=== PATIENT | male | born 1965 | race Caucasian/White ===

== ENCOUNTER 2024-08-07 21:41 | Emergency (ER) | payer SELFPAY ==
[2024-08-07 21:51] VITALS: RESP 18
--- NOTE | 2024-08-07 23:11 | ED ---
Seizure HPI - General Chief Complaint: Seizure Stated Complaint: Seizure Time Seen by Provider: 08/07/24 21:50 Source: EMS Mode of arrival: EMS - History of Present Illness Initial Comments: 58-year-old male who presents emergency department after he had a seizure. Patient is currently staying at a [facility]. He has a history of seizure disorder. He has been unable to obtain his Keppra and therefore having breakthrough seizures. States he did not take his medication this morning. Patient does admit to having a refill for the prescription however does not get his disability check until the morning. No reported injuries from the seizure. Patient states that he does not already evaluated as he was just seen yesterday for breakthrough seizure - Related Data Allergies Allergy/AdvReac Type Severity Reaction Status Date / Time No Known Allergies Allergy Verified 08/07/24 21:51 Review of Systems ROS Statement: Those systems with pertinent positive or pertinent negative responses have been documented in the HPI. ROS Other: All systems not noted in ROS Statement are negative. General Exam General appearance: alert, in no apparent distress Head exam: Present: atraumatic, normocephalic, normal inspection Eye exam: Present: normal appearance, PERRL, EOMI. Absent: scleral icterus, conjunctival injection, periorbital swelling ENT exam: Present: normal exam, mucous membranes moist Neck exam: Present: normal inspection. Absent: tenderness, meningismus, lymphadenopathy Respiratory exam: Present: normal lung sounds bilaterally. Absent: respiratory distress, wheezes, rales, rhonchi, stridor Cardiovascular Exam: Present: regular rate, normal rhythm, normal heart sounds. Absent: systolic murmur, diastolic murmur, rubs, gallop, clicks GI/Abdominal exam: Present: soft, normal bowel sounds. Absent: distended, tenderness, guarding, rebound, rigid Extremities exam: Present: normal inspection, full ROM, normal capillary refill. Absent: tenderness, pedal edema, joint swelling, calf tenderness Back exam: Present: normal inspection Neurological exam: Present: alert, oriented X3, CN II-XII intact Psychiatric exam: Present: normal affect, normal mood Skin exam: Present: warm, dry, intact, normal color. Absent: rash Course Vital Signs 08/07/24 08/07/24 21:47 23:28 Temperature 98.2 F 98.3 F Pulse Rate 80 76 Respiratory 18 18 Rate Blood Pressure 138/72 126/71 O2 Sat by Pulse 98 99 Oximetry Medical Decision Making - Medical Decision Making Was pt. sent in by a medical professional or institution (MARQUISE Mobley, FISH FARMER, urgent care, hospital, or longterm...) When possible be specific @ -No Did you speak to anyone other than the patient for history (EMS, parent, family, police, friend...)? What history was obtained from this source @ -Spoke with EMS who brought the patient in Did you review nursing and triage notes (agree or disagree)? Why? @ -I reviewed and agree with nursing and triage notes Were old charts reviewed (outside hosp., previous admission, EMS record, old EKG, old radiological studies, urgent care reports/EKG's, longterm records)? Report findings @ -No Differential Diagnosis (chest pain, altered mental status, abdominal pain women, abdominal pain men, vaginal bleeding, weakness, fever, dyspnea, syncope, headache, dizziness, GI bleed, back pain, seizure, CVA, palpatations, mental health, musculoskeletal)? @ -Differential Seizure: Recurrent seizure disorder, febrile seizure, alcohol withdrawal, stimulants, meningitis, encephalitis, intercranial hemorrhage, intracranial tumor, stroke, eclampsia, thyrotoxicosis, hypocalcemia, hyponatremia, hypernatremia, hypomagnesemia, psychogenic, this is not meant to be an all-inclusive list. EKG interpreted by me (3pts min.). @ -Not done X-rays interpreted by me (1pt min.). @ -None done CT interpreted by me (1pt min.). @ -None done U/S interpreted by me (1pt. min.). @ -None done What testing was considered but not performed or refused? (CT, X-rays, U/S, labs)? Why? @ -Laboratory studies were considered however patient refused as he does have a history of seizure disorder and is out of his seizure medications What meds were considered but not given or refused? Why? @ -None Did you discuss the management of the patient with other professionals (professionals i.e. MARQUISE Mobley, FISH FARMER, lab, RT, psych nurse, social service worker, concrete mixer, teacher, mobile patrol officer, outpatient case manager)? Give summary @ -No Was smoking cessation discussed for >3mins.? @ -No Was critical care preformed (if so, how long)? @ -No Were there social determinants of health that impacted care today? How? (Homelessness, low income, unemployed, alcoholism, drug addiction, transportation, low edu. Level, literacy, decrease access to med. care, skilled nursing, rehab)? @ -Patient is currently in a [facility]p Was there de-escalation of care discussed even if they declined (Discuss DNR or withdrawal of care, Hospice)? DNR status @ -No What co-morbidities impacted this encounter? (DM, HTN, Smoking, COPD, CAD, Cancer, CVA, ARF, Chemo, Hep., AIDS, mental health diagnosis, sleep apnea, morbid obesity)? @ -Seizure disorder Was patient admitted / discharged? Hospital course, mention meds given and route, prescriptions, significant lab abnormalities, going to OR and other pertinent info. @ -Upon arrival patient seen and evaluated in bed 8. Thorough history and physical exam was performed. I did recommend laboratory studies however patient refused. States he is having seizures because he is out of his seizure medications. He does have a prescription for them however has not filled it due to lack of funds. Patient was given his dose of Keppra tonight. Additionally given another dose for the morning. At this time he will be discharged home. Patient states he will obtain his medications as he is getting his disability today. Patient discharged in stable condition Undiagnosed new problem with uncertain prognosis? @ -No Drug Therapy requiring intensive monitoring for toxicity (Heparin, Nitro, Insulin, Cardizem)? @ -No Were any procedures done? @ -No Diagnosis/symptom? @ -Acute breakthrough seizure, medical noncompliance Acute, or Chronic, or Acute on Chronic? @ -Acute on chronic Uncomplicated (without systemic symptoms) or Complicated (systemic symptoms)? @ -Complicated Side effects of treatment? @ -No Exacerbation, Progression, or Severe Exacerbation? @ -No Poses a threat to life or bodily function? How? (Chest pain, [place], [place], pneumonia, PE, COPD, DKA, ARF, appy, cholecystitis, CVA, Diverticulitis, Homicidal, Suicidal, threat to staff... and all critical care pts) @ -No Disposition Clinical Impression: Breakthrough seizure Disposition: HOME SELF-CARE Condition: Stable Instructions (If sedation given, give patient instructions): Seizure/Epilepsy Discharge Instructions & Follow-Up Additional Instructions: Please take your medications as they are instructed. Follow-up with your doctor and return for any new or worsening symptoms Is patient prescribed a controlled substance at d/c from ED?: No Referrals: None,Stated [Primary Care Provider] - 1-2 days Time of Disposition: 23:11
[2024-08-07] MEDS: levETIRAcetam 500 MG TAB PO STA (23:24)
[2024-08-07 23:40] VITALS: BP 126/71; PULSE 76; TEMP 98.3
== END 2024-08-07 23:39 | disposition home or self-care (01) ==
LOC: EC 21:41
CPT/HCPCS: 99284

== ENCOUNTER 2024-12-18 11:25 | Emergency (ER) | payer MEDICARE ==
[2024-12-18 11:36] VITALS: RESP 16; TEMP 97.8
--- NOTE | 2024-12-18 13:34 | ED ---
Back Pain HPI - General Chief Complaint: Back Pain/Injury Stated Complaint: repeated falls, back pain Time Seen by Provider: 12/18/24 11:43 Source: patient, RN notes reviewed Mode of arrival: ambulatory Limitations: no limitations - History of Present Illness Initial Comments: This is a 59-year-old male presenting for lower back pain following fall on ice yesterday. Patient states he fell backward landing on his gluteus. Endorses associated left leg numbness. States he is still able to ambulate. Denies striking his head, loss of consciousness, headache, neck pain, vision changes, nausea/vomiting, dizziness. Denies other significant injury. MD Complaint: back pain, back injury, fall Onset/Timin -: days(s) Similar Symptoms Previously: No Place: street Radiation: left leg Severity scale (1-10): 6 Quality: sharp Consistency: constant Improves With: immobilization, supine Worsens With: movement, sitting upright, walking Associated Symptoms: numbness - Related Data Previous Rx's Medication Instructions Recorded metFORMIN HCL 1,000 mg PO BID #20 tab 12/13/24 Cyclobenzaprine [Flexeril] 10 mg PO Q8H PRN #15 tab 12/18/24 Ibuprofen [Motrin] 800 mg PO Q8H PRN #30 tab 12/18/24 predniSONE 50 mg PO DAILY #5 tab 12/18/24 Nirmatrelvir/Ritonavir [Paxlovid 1 each PO BID 5 Days #10 each 12/20/24 300-100 mg Dose Pack] Allergies Allergy/AdvReac Type Severity Reaction Status Date / Time No Known Allergies Allergy Verified 12/20/24 16:47 Review of Systems ROS Statement: Those systems with pertinent positive or pertinent negative responses have been documented in the HPI. ROS Other: All systems not noted in ROS Statement are negative. Past Medical History Past Medical History: Diabetes Mellitus, Hypertension History of Any Multi-Drug Resistant Organisms: None Reported Past Surgical History: No Surgical Hx Reported Past Psychological History: No Psychological Hx Reported Smoking Status: Current every day smoker Past Alcohol Use History: None Reported Past Drug Use History: None Reported General Exam Limitations: no limitations General appearance: alert, in no apparent distress Head exam: Present: atraumatic, normocephalic, normal inspection Eye exam: Present: normal appearance, PERRL, EOMI. Absent: scleral icterus, conjunctival injection, periorbital swelling ENT exam: Present: normal exam, mucous membranes moist Neck exam: Present: normal inspection. Absent: tenderness, meningismus, lymphadenopathy Respiratory exam: Present: normal lung sounds bilaterally. Absent: respiratory distress, wheezes, rales, rhonchi, stridor Cardiovascular Exam: Present: regular rate, normal rhythm, normal heart sounds. Absent: systolic murmur, diastolic murmur, rubs, gallop, clicks GI/Abdominal exam: Present: soft, normal bowel sounds. Absent: distended, tenderness, guarding, rebound, rigid Extremities exam: Present: full ROM, tenderness (Positive LLE tenderness without paresthesia), normal capillary refill, other (Bilateral posterior tibialis pulse +2). Absent: pedal edema, joint swelling, calf tenderness Back exam: Present: paraspinal tenderness (Positive bilateral paralumbar/sacral tenderness), vertebral tenderness (Positive lumbosacral tenderness without obvious crepitus or step-off) Neurological exam: Present: alert, oriented X3, CN II-XII intact Psychiatric exam: Present: normal affect, normal mood Skin exam: Present: warm, dry, intact, normal color. Absent: rash Course Vital Signs 12/18/24 12/18/24 11:34 15:27 Temperature 97.8 F Pulse Rate 65 63 Respiratory 16 16 Rate Blood Pressure 121/76 123/66 O2 Sat by Pulse 98 100 Oximetry Medical Decision Making - Medical Decision Making Was pt. sent in by a medical professional or institution (, PA, ASSISTANT CASINO SHIFT MANAGER, urgent care, hospital, or fpc...) When possible be specific @ -No Did you speak to anyone other than the patient for history (EMS, parent, family, police, friend...)? What history was obtained from this source @ -No Did you review nursing and triage notes (agree or disagree)? Why? @ -I reviewed and agree with nursing and triage notes Were old charts reviewed (outside hosp., previous admission, EMS record, old EKG, old radiological studies, urgent care reports/EKG's, fpc records)? Report findings @ -No old charts were reviewed Differential Diagnosis (chest pain, altered mental status, abdominal pain women, abdominal pain men, vaginal bleeding, weakness, fever, dyspnea, syncope, headache, dizziness, GI bleed, back pain, seizure, CVA, palpatations, mental health, musculoskeletal)? @ -Differential Back Pain: Strain, zoster, cauda equina syndrome, epidural abscess, vertebral osteomyelitis, discitis, fracture, subluxation, disc herniation, DJD, spinal stenosis, dissection, AAA, pancreatitis, peptic ulcer disease, pyelonephritis, kidney stone, this is not meant to be an all-inclusive list. EKG interpreted by me (3pts min.). @ -Not done X-rays interpreted by me (1pt min.). @ -Lumbosacral x-ray shows mild degenerative changes at L1-2, L5-S1 and mild disc space narrowing at L5-S1. No obvious fracture or dislocation. CT interpreted by me (1pt min.). @ -None done U/S interpreted by me (1pt. min.). @ -None done What testing was considered but not performed or refused? (CT, X-rays, U/S, labs)? Why? @ -None What meds were considered but not given or refused? Why? @ -None Did you discuss the management of the patient with other professionals (professionals i.e. , PA, ASSISTANT CASINO SHIFT MANAGER, lab, RT, psych nurse, social organization professor, leasing property manager, teacher, military police officer, bilingual patient support caseworker)? Give summary @ -No Was smoking cessation discussed for >3mins.? @ -No Was critical care preformed (if so, how long)? @ -No Were there social determinants of health that impacted care today? How? (Homelessness, low income, unemployed, alcoholism, drug addiction, transportation, low edu. Level, literacy, decrease access to med. care, residential, rehab)? @ -No Was there de-escalation of care discussed even if they declined (Discuss DNR or withdrawal of care, Hospice)? DNR status @ -No What co-morbidities impacted this encounter? (DM, HTN, Smoking, COPD, CAD, Cancer, CVA, ARF, Chemo, Hep., AIDS, mental health diagnosis, sleep apnea, morbid obesity)? @ -None Was patient admitted / discharged? Hospital course, mention meds given and route, prescriptions, significant lab abnormalities, going to OR and other pertinent info. @ -Lumbosacral x-ray shows mild degenerative changes at L1-2, L5-S1 and mild disc space narrowing at L5-S1. No obvious fracture or dislocation. Patient provided IM Toradol, Solu-Medrol and Norflex along with lidocaine patch with significant relief noted by patient. Motrin 800, Flexeril and prednisone sent to patient's pharmacy. Advised follow-up with PCP/orthospine for ongoing management of pain. Discussed patient with Dr. Alicea. Undiagnosed new problem with uncertain prognosis? @ -No Drug Therapy requiring intensive monitoring for toxicity (Heparin, Nitro, Insulin, Cardizem)? @ -No Were any procedures done? @ -No Diagnosis/symptom? @ -Lumbar back strain with radiculopathy Acute, or Chronic, or Acute on Chronic? @ -Acute Uncomplicated (without systemic symptoms) or Complicated (systemic symptoms)? @ -Uncomplicated Side effects of treatment? @ -No Exacerbation, Progression, or Severe Exacerbation? @ -No Poses a threat to life or bodily function? How? (Chest pain, [place], [place], pneumonia, PE, COPD, DKA, ARF, appy, cholecystitis, CVA, Diverticulitis, Homicidal, Suicidal, threat to staff... and all critical care pts) @ -No Disposition Clinical Impression: Strain of lumbar region, Sciatica Disposition: HOME SELF-CARE Condition: Good Instructions (If sedation given, give patient instructions): Acute Low Back Pain (ED) Prescriptions: Cyclobenzaprine [Flexeril] 10 mg PO Q8H PRN #15 tab PRN Reason: Spasms Ibuprofen [Motrin] 800 mg PO Q8H PRN #30 tab PRN Reason: Pain predniSONE 50 mg PO DAILY #5 tab Is patient prescribed a controlled substance at d/c from ED?: No Referrals: None,Stated [Primary Care Provider] - 1-2 days Gilmar Loving DO [Doctor of Osteopathic Medicine] - 1-2 days Time of Disposition: 15:14
[2024-12-18] MEDS: KETOROLAC 15 MG/ML 1 ML VIAL IM STA (13:41)
[2024-12-18] MEDS: methylPREDNISolone SOD SUCCI 125 MG/2 ML VIAL IM ONE (13:41)
[2024-12-18] MEDS: ORPHENADRINE 30 MG/ML 2 ML VIAL IM STA (13:42)
[2024-12-18] MEDS: LIDOCAINE 4% PATCH TOPICAL ONE (13:42)
--- NOTE | 2024-12-18 14:21 | XR ---
EXAMINATION TYPE: XR lumbosacral spine min 4V DATE OF EXAM: 12/18/2024 1:58 PM COMPARISON: None. CLINICAL INDICATION: Male, 59 years old with history of Fall with lower back pain, sciatica, pain TECHNIQUE: 5 view(s) obtained. FINDINGS: There are 6 lumbar-type vertebral bodies. The T12 level appears to be transitional and may have rudim entary 12th ribs. Facet degenerative changes present L5-S1 and L1-2. Mild posterior disc space narrow ing is present L5-S1 remaining disc heights are preserved. Vertebral body heights are preserved. IMPRESSION: 1. Mild degenerative changes discussed above. 2. No acute osseous abnormality radiographically apparent [facility], , 12/18/2024 2:19 PM
[2024-12-18 15:28] VITALS: BP 123/66; PULSE 63
== END 2024-12-18 15:28 | disposition home or self-care (01) ==
LOC: EC 11:25
DX: S39.012A Strain of muscle, fascia and tendon of lower back, initial encounter (principal); F17.200 Nicotine dependence, unspecified, uncomplicated; X50.0XXA Overexertion from strenuous movement or load, initial encounter
CPT/HCPCS: 72110; 99283; 96372 ×3; J2360; J1885; J2919

== ENCOUNTER 2024-12-20 16:09 | Emergency (ER) | payer MEDICARE ==
[2024-12-20] MEDS: SODIUM CHLORIDE 0.9% 1,000 ML IV STA (17:16)
[2024-12-20] MEDS: ASPIRIN 81 MG PO STA (17:17)
--- NOTE | 2024-12-20 17:17 | ED ---
General Adult HPI - General Chief complaint: Chest Pain Stated complaint: chest pain Time Seen by Provider: 12/20/24 16:23 Source: patient Mode of arrival: ambulatory Limitations: no limitations - History of Present Illness Initial comments: Patient is a 59-year-old gentleman, past medical history diabetes presenting today for not being able to taste since this morning and right sided chest pain. Patient states woke up feeling like he could not taste anything. Then this afternoon was sitting in the library and started having "poking" right sided in termittent chest pain. States he has been dealing with this "for a long time". Took his usual pain medications this morning however none since the onset of his chest pain. When asked about difficulty breathing he states he feels like he has difficulty getting air through his throat but denies throat pain. Denies cough, fevers, rashes, new numbness or tingling or weakness, abdominal pain, nausea, vomiting, diaphoresis. - Related Data Previous Rx's Medication Instructions Recorded metFORMIN HCL 1,000 mg PO BID #20 tab 12/13/24 Cyclobenzaprine [Flexeril] 10 mg PO Q8H PRN #15 tab 12/18/24 Ibuprofen [Motrin] 800 mg PO Q8H PRN #30 tab 12/18/24 predniSONE 50 mg PO DAILY #5 tab 12/18/24 Nirmatrelvir/Ritonavir [Paxlovid 1 each PO BID 5 Days #10 each 12/20/24 300-100 mg Dose Pack] Allergies Allergy/AdvReac Type Severity Reaction Status Date / Time No Known Allergies Allergy Verified 12/20/24 16:47 Review of Systems ROS Statement: Those systems with pertinent positive or pertinent negative responses have been documented in the HPI. ROS Other: All systems not noted in ROS Statement are negative. Past Medical History Past Medical History: Diabetes Mellitus, Hypertension History of Any Multi-Drug Resistant Organisms: None Reported Past Surgical History: No Surgical Hx Reported Past Psychological History: No Psychological Hx Reported Smoking Status: Current every day smoker Past Alcohol Use History: None Reported Past Drug Use History: None Reported General Exam - General Exam Comments Initial Comments: PE: CONSTITUTIONAL: No apparent distress, well appearing SKIN: Warm, dry, no jaundice, hives or petechiae EYES: Pupils are equally round, extraocular movements intact without nystagmus, clear conjunctiva, non-icteric sclera HENT: Normocephalic, atraumatic, moist mucus membranes, oropharynx clear without exudates, posterior oropharynx is not erythematous, there is no uvular swelling or oropharyngeal edema, no tonsillar exudates NECK: , Full range of motion, normal appearance PULMONARY: Clear to auscultation without wheezes, rhonchi, or rales, normal ex cursion, no accessory muscle use and no stridor CARDIOVASCULAR: Reproducible chest wall point tenderness with palpation of the right chest, regular rate, rhythm, normal S1 and S2. No appreciated murmurs, rubs or gallops. Strong radial pulses with intact distal perfusion. No lower extremity edema GASTROINTESTINAL: Soft, active bowel sounds throughout, non-tender, non- distended, no palpable masses, no rebound or guarding. No hepatosplenomegaly MUSCULOSKELETAL: Extremities have no gross deformity, no edema, redness, or swelling. No calf swelling NEUROLOGIC:_a/o x 3, GCS 15, normal mentation and speech. Moves all extremities x 4 without motor or sensory deficit, no focal neurologic deficits PSYCHIATRIC:_normal mood and affect, thought process is clear and linear Limitations: no limitations Course Vital Signs 12/20/24 12/20/24 12/20/24 16:15 18:06 19:56 Temperature 97.2 F L 98.2 F 98.1 F Pulse Rate 91 67 70 Respiratory 19 16 18 Rate Blood Pressure 144/99 143/90 123/81 O2 Sat by Pulse 98 98 98 Oximetry EKG Findings - EKG Comments: EKG Findings:: Sinus rhythm, rate 70 bpm OR interval 137 ms QT/QTc 402/425 ms, normal axis, artifact present, otherwise no ST elevations or depression, no STEMI Medical Decision Making - Medical Decision Making Was pt. sent in by a medical professional or institution (, PA, RESIDENTIAL CARE OFFICER, urgent care, hospital, or fpc...) When possible be specific @ -No Did you speak to anyone other than the patient for history (EMS, parent, family, police, friend...)? What history was obtained from this source @ -No Did you review nursing and triage notes (agree or disagree)? Why? @ -I reviewed nursing and triage notes Were old charts reviewed (outside hosp., previous admission, EMS record, old EKG, old radiological studies, urgent care reports/EKG's, fpc records)? Report findings @ -Medical records reviewed-patient was here on 12/18/2024 for generalized back pain x-ray at that time showed no acute process, patient here 12/13/24 for d iabetic problems Differential Diagnosis (chest pain, altered mental status, abdominal pain women, abdominal pain men, vaginal bleeding, weakness, fever, dyspnea, syncope, headache, dizziness, GI bleed, back pain, seizure, CVA, palpatations, mental health, musculoskeletal)? In regards to decreased taste and chest pain, differential diagnosis remains broad however top considerations include COVID 19 or other viral etiology, uncontrolled DM, nutritional deficiency, electrolyte abnormality, ACS, pericarditis, pleuritis, chostocondritis, MSK, esophageal spasm, GERD, this is not an all inclusive list EKG interpreted by me (3pts min.). @ -As above X-rays interpreted by me (1pt min.). I personally reviewed CXR, I see no cardiomegaly, consolidations or pneumothorax, I agree with radiologist interpretation CT interpreted by me (1pt min.). @ -None done U/S interpreted by me (1pt. min.). @ -None done What testing was considered but not performed or refused? (CT, X-rays, U/S, labs)? Why? @ -None What meds were considered but not given or refused? Why? @ -None Did you discuss the management of the patient with other professionals (professionals i.e. , PA, RESIDENTIAL CARE OFFICER, lab, RT, psych nurse, elementary school social worker, home office claim specialist, teacher, parking control officer, pillowcase turner)? Give summary @ -No Was smoking cessation discussed for >3mins.? @ -No Was critical care preformed (if so, how long)? @ -No Were there social determinants of health that impacted care today? How? (Homelessness, low income, unemployed, alcoholism, drug addiction, transportation, low edu. Level, literacy, decrease access to med. care, skilled nursing, rehab)? @Homelessness Was there de-escalation of care discussed even if they declined (Discuss DNR or withdrawal of care, Hospice)? @ -No What co-morbidities impacted this encounter? (DM, HTN, Smoking, COPD, CAD, Cancer, CVA, ARF, Chemo, Hep., AIDS, mental health diagnosis, sleep apnea, morbid obesity)? CAD Was patient admitted / discharged? Hospital course, mention meds given and route, prescriptions, significant lab abnormalities, going to OR and other pertinent info. @Discharged- Pt 59-year-old gentleman history of homelessness, CAD, DM, presenting today for various complaints. Notes being unable to taste since this morning,right sided CP that has been an an ongoing issue for the pt. Vitals w/in acceptable limits on arrival. Exam significant for reproducible chest wall TTP. Respirations are unlabored without wheezes rhonchi or stridor. Discussed with patient plan for chest x-ray, cardiac labs, Cepheid testing. Will give aspirin, Tylenol for chest pain. Chest pain is reproducible and states patient states "has been going on for a long time".'s will obtain single troponin. Patient is COVID-positive which would explain his difficulty with taste. Chest x-ray is pending. Glucose is in the 400s though no anion gap. Will recheck after insulin, fluids. On reassessment pt states pain has resolved. HEART score 2-3. Updated him to findings today and offered paxlovid therapy for COVID19, to which p was agreeable. On recheck glucose down to 257. Discussed hyperglycemia and the i mportance of following up with his PCP regarding today's visit. Pt verbalzed understanding and was discharged in improved condition. In my medical judgment there is currently no evidence of an immediate life- threatening or surgical condition. Discharge is therefore indicated at this time. Discharge treatment instructions, follow up instructions, and appropriate emergency department return precautions were discussed with the patient and/or medical decision maker. Patient and/or medical decision maker expressed understanding of and agreed with the treatment plan, follow up instructions, and emergency department return precaution. All patient's and/or medical decision maker's questions were answered. Undiagnosed new problem with uncertain prognosis? @ -No Drug Therapy requiring intensive monitoring for toxicity (Heparin, Nitro, Insulin, Cardizem)? @ -No Were any procedures done? @ -No Diagnosis/symptom? @ -COVID-19, hyperglycemia Acute, or Chronic, or Acute on Chronic? @Acute Uncomplicated (without systemic symptoms) or Complicated (systemic symptoms)? @ -Uncomplicated Side effects of treatment? @ -No Exacerbation, Progression, or Severe Exacerbation? @ -No - Lab Data Result diagrams: 12/20/24 17:16 12/20/24 17:16 Lab Results 12/20/24 12/20/24 12/20/24 Range/Units 16:42 17:16 17:16 WBC 5.9 (3.8-10.6) k/uL RBC 4.95 (4.30-5.90) m/uL Hgb 15.9 (13.0-17.5) gm/dL Hct 49.2 (39.0-53.0) % MCV 99.3 (80.0-100.0) fL MCH 32.0 (25.0-35.0) pg MCHC 32.3 (31.0-37.0) g/dL RDW 12.4 (11.5-15.5) % Plt Count 205 (150-450) k/uL MPV 8.8 Neutrophils % 74 % Lymphocytes % 19 % Monocytes % 6 % Eosinophils % 0 % Basophils % 0 % Neutrophils # 4.3 (1.3-7.7) k/uL Lymphocytes # 1.1 (1.0-4.8) k/uL Monocytes # 0.4 (0-1.0) k/uL Eosinophils # 0.0 (0-0.7) k/uL Basophils # 0.0 (0-0.2) k/uL PT 10.5 (10.0-12.5) sec INR 0.9 (<1.2) APTT 21.8 L (22.0-30.0) sec Sodium (137-145) mmol/L Potassium (3.5-5.1) mmol/L Chloride (98-107) mmol/L Carbon Dioxide (22-30) mmol/L Anion Gap mmol/L BUN (9-20) mg/dL Creatinine (0.66-1.25) mg/dL Est GFR (CKD-EPI)AfAm (>60 ml/min/1.73 sqM) Est GFR (CKD-EPI)NonAf (>60 ml/min/1.73 sqM) Glucose (74-99) mg/dL POC Glucose (mg/dL) (70-110) mg/dL POC Glu Relocation Manager ID Calcium (8.4-10.2) mg/dL Magnesium (1.6-2.3) mg/dL Total Bilirubin (0.2-1.3) mg/dL AST (17-59) U/L ALT (4-49) U/L Alkaline Phosphatase (38-126) U/L Troponin I (0.000-0.034) ng/mL Total Protein (6.3-8.2) g/dL Albumin (3.5-5.0) g/dL Influenza Type A (PCR) Not Detected (Not Detectd) Influenza Type B (PCR) Not Detected (Not Detectd) RSV (PCR) Not Detected (Not Detectd) SARS-CoV-2 (PCR) Detected A (Not Detectd) 12/20/24 12/20/24 12/20/24 Range/Units 17:16 17:16 19:26 WBC (3.8-10.6) k/uL RBC (4.30-5.90) m/uL Hgb (13.0-17.5) gm/dL Hct (39.0-53.0) % MCV (80.0-100.0) fL MCH (25.0-35.0) pg MCHC (31.0-37.0) g/dL RDW (11.5-15.5) % Plt Count (150-450) k/uL MPV Neutrophils % % Lymphocytes % % Monocytes % % Eosinophils % % Basophils % % Neutrophils # (1.3-7.7) k/uL Lymphocytes # (1.0-4.8) k/uL Monocytes # (0-1.0) k/uL Eosinophils # (0-0.7) k/uL Basophils # (0-0.2) k/uL PT (10.0-12.5) sec INR (<1.2) APTT (22.0-30.0) sec Sodium 132 L (137-145) mmol/L Potassium 4.8 (3.5-5.1) mmol/L Chloride 93 L (98-107) mmol/L Carbon Dioxide 29 (22-30) mmol/L Anion Gap 10 mmol/L BUN 25 H (9-20) mg/dL Creatinine 0.81 (0.66-1.25) mg/dL Est GFR (CKD-EPI)AfAm >90 (>60 ml/min/1.73 sqM) Est GFR (CKD-EPI)NonAf >90 (>60 ml/min/1.73 sqM) Glucose 459 H (74-99) mg/dL POC Glucose (mg/dL) 257 H (70-110) mg/dL POC Glu Relocation Manager ID Srinath Elena Calcium 10.3 H (8.4-10.2) mg/dL Magnesium 2.3 (1.6-2.3) mg/dL Total Bilirubin 0.8 (0.2-1.3) mg/dL AST 27 (17-59) U/L ALT 25 (4-49) U/L Alkaline Phosphatase 72 (38-126) U/L Troponin I <0.012 (0.000-0.034) ng/mL Total Protein 7.1 (6.3-8.2) g/dL Albumin 4.5 (3.5-5.0) g/dL Influenza Type A (PCR) (Not Detectd) Influenza Type B (PCR) (Not Detectd) RSV (PCR) (Not Detectd) SARS-CoV-2 (PCR) (Not Detectd) Disposition Clinical Impression: Hyperglycemia, COVID-19 Disposition: HOME SELF-CARE Condition: Stable Instructions (If sedation given, give patient instructions): Coronavirus Disease 2019 (COVID-19), Chest Pain (ED) Additional Instructions: Every disease is a spectrum and a small chance still exists that a serious condition could develop, for this reason, please monitor yourself closely for new, changing or worsening symptoms, symptoms that persist beyond 48 hours, for more than 4 days, difficulty in breathing, coughing up blood or thick sputum, changes in vision, new numbness or weakness, difficulty in breathing, swelling in your legs, inability to tolerate/keep down fluids or your medications, inability to follow up with outpatient providers as instructed and should you experience these symptoms or should you have any further concerns for your wellbeing please return to the ED or call 911 immediately. Your pain can be treated with acetaminophen. You can take up to 1000 mg of acetaminophen (Tylenol) every 6 hours. Be careful as this is included in some medicines like Nyquil, [place], Percocet, Vicodin, STANBACK, Goody's Powders, and Excedrin. You can also use lidocaine patches for topical pain. You can purchase 4% patches over the counter at most drug stores. These can be helpful for pain from your muscles or bones. Please plenty of fluids and get plenty of rest. PLEASE call your primary care physician as soon as possible to arrange / discuss plan for followup appointment. Appointment in the next 1-3 days is strongly encouraged if possible. PLEASE let us know here before you leave if there is anything further we can do to be of any assistance. Take care and feel Better! Prescriptions: Nirmatrelvir/Ritonavir [Paxlovid 300-100 mg Dose Pack] 1 each PO BID 5 Days #10 each Is patient prescribed a controlled substance at d/c from ED?: No Referrals: None,Stated [Primary Care Provider] - 1-2 days
[2024-12-20] MEDS: ACETAMINOPHEN TAB 325 MG TAB PO STA (17:21)
[2024-12-20 17:25] LABS: Influenza A Not Detected (Not Detectd); Influenza B Not Detected (Not Detectd); RSV Not Detected (Not Detectd)
[2024-12-20 17:31] LABS: Basophils % (A) 0 %; Eosinophils % (A) 0 %; HCT 49.2 % (39.0-53.0); HGB 15.9 gm/dL (13.0-17.5); Lymphocytes # (A) 1.1 k/uL (1.0-4.8); Lymphocytes % (A) 19 %; MCHC 32.3 g/dL (31.0-37.0); MCV 99.3 fL (80.0-100.0); Mean Platelet Volume 8.8; Monocytes # (A) 0.4 k/uL (0-1.0); Monocytes % (A) 6 %; Neutrophils # (A) 4.3 k/uL (1.3-7.7); Neutrophils % (A) 74 %; Platelet Count 205 k/uL (150-450); RBC 4.95 m/uL (4.30-5.90); RDW 12.4 % (11.5-15.5); WBC 5.9 k/uL (3.8-10.6)
[2024-12-20 17:42] LABS: ALT 25 U/L (4-49); AST 27 U/L (17-59); African American GFR (CKD) >90 (>60 ml/min/1.73 sqM); Albumin 4.5 g/dL (3.5-5.0); Alkaline Phosphatase 72 U/L (38-126); Anion Gap 10 mmol/L; Blood Urea Nitrogen 25 mg/dL (9-20); Calcium 10.3 mg/dL (8.4-10.2); Carbon Dioxide 29 mmol/L (22-30); Chloride 93 mmol/L (98-107); Glucose 459 mg/dL (74-99); Magnesium 2.3 mg/dL (1.6-2.3); Non-African American GFR(CKD) >90 (>60 ml/min/1.73 sqM); Potassium 4.8 mmol/L (3.5-5.1); Sodium 132 mmol/L (137-145); Total Bilirubin 0.8 mg/dL (0.2-1.3); Total Protein 7.1 g/dL (6.3-8.2)
[2024-12-20 17:48] LABS: INR 0.9 (<1.2); Prothrombin Time 10.5 sec (10.0-12.5)
[2024-12-20 18:01] LABS: Partial Thromboplastin Time 21.8 sec (22.0-30.0)
[2024-12-20] MEDS: SODIUM CHLORIDE 0.9% 2,000 ML IV ONE (18:12)
[2024-12-20] MEDS: INSULIN REGULAR 100 UNIT/ML VIAL (IV) IV ONE (18:19)
--- NOTE | 2024-12-20 18:59 | XR ---
EXAMINATION TYPE: XR chest 2V DATE OF EXAM: 12/20/2024 6:46 PM COMPARISON: None. CLINICAL INDICATION: Male, 59 years old with history of Chest Pain, TECHNIQUE: Frontal and lateral views of the chest are obtained. FINDINGS: There is no focal air space opacity, pleural effusion, or pneumothorax seen. The cardiac silhouette size is within normal limits. The osseous structures are intact. IMPRESSION: No acute process. [facility], , 12/20/2024 6:56 PM
[2024-12-20 19:28] LABS: Glucose,Whole Blood 257 mg/dL (70-110)
[2024-12-20 19:57] VITALS: BP 123/81; PULSE 70; RESP 18; TEMP 98.1
== END 2024-12-20 19:57 | disposition home or self-care (01) ==
LOC: EC 16:09
DX: U07.1 COVID-19 (principal); E11.65 Type 2 diabetes mellitus with hyperglycemia; F17.200 Nicotine dependence, unspecified, uncomplicated
CPT/HCPCS: 36415; 71046; 80053; 83735; 84484; 85025; 85610; 85730; 87636; 93005; 96360; 96361; 99285

== ENCOUNTER 2025-01-30 19:38 | Inpatient (IN) | payer MEDICARE ==
--- NOTE | 2025-01-30 20:12 | ED ---
Abdominal Pain HPI - General Chief Complaint: Abdominal Pain Stated Complaint: Abd Pain Time Seen by Provider: 01/30/25 19:45 Source: patient, RN notes reviewed Mode of arrival: ambulatory Limitations: no limitations - History of Present Illness Initial Comments: 59-year-old male presents emergency department with chief complaint of abdominal pain. Patient states he has lower abdominal pain pressure. Patient also has dysuria. Patient states that he just feels weak, weight loss. Patient states he is concerned his prostate cancer as he states all of his family have had had prostate cancer. Patient denies any change in bowel habits no chest pain no shortness of breath. - Related Data Previous Rx's Medication Instructions Recorded metFORMIN HCL 1,000 mg PO BID #20 tab 12/13/24 Cyclobenzaprine [Flexeril] 10 mg PO Q8H PRN #15 tab 12/18/24 Ibuprofen [Motrin] 800 mg PO Q8H PRN #30 tab 12/18/24 predniSONE 50 mg PO DAILY #5 tab 12/18/24 Nirmatrelvir/Ritonavir [Paxlovid 1 each PO BID 5 Days #10 each 12/20/24 300-100 mg Dose Pack] Allergies Allergy/AdvReac Type Severity Reaction Status Date / Time No Known Allergies Allergy Verified 12/20/24 16:47 Review of Systems ROS Statement: Those systems with pertinent positive or pertinent negative responses have been documented in the HPI. ROS Other: All systems not noted in ROS Statement are negative. Past Medical History Past Medical History: Dementia, Diabetes Mellitus, Hypertension History of Any Multi-Drug Resistant Organisms: None Reported Past Surgical History: Tonsillectomy Past Psychological History: No Psychological Hx Reported Smoking Status: Current every day smoker Past Alcohol Use History: None Reported Past Drug Use History: None Reported General Exam Limitations: no limitations General appearance: alert, in no apparent distress Head exam: Present: atraumatic, normocephalic, normal inspection Eye exam: Present: normal appearance, PERRL, EOMI. Absent: scleral icterus, conjunctival injection, periorbital swelling ENT exam: Present: normal exam, normal oropharynx, mucous membranes moist Neck exam: Present: normal inspection, full ROM. Absent: tenderness, meningismus, lymphadenopathy Respiratory exam: Present: normal lung sounds bilaterally. Absent: respiratory distress, wheezes, rales, rhonchi, stridor Cardiovascular Exam: Present: regular rate, normal rhythm, normal heart sounds. Absent: systolic murmur, diastolic murmur, rubs, gallop, clicks GI/Abdominal exam: Present: soft, normal bowel sounds. Absent: distended, tenderness, guarding, rebound, rigid Back exam: Absent: CVA tenderness (R), CVA tenderness (L) Neurological exam: Present: alert Skin exam: Present: warm, dry, intact, normal color. Absent: rash Course Vital Signs 01/30/25 01/30/25 01/30/25 19:40 20:21 21:44 Temperature 98.3 F Pulse Rate 95 91 85 Respiratory 16 20 20 Rate Blood Pressure 154/91 137/84 143/84 O2 Sat by Pulse 98 99 Oximetry Medical Decision Making - Medical Decision Making Was pt. sent in by a medical professional or institution (, PA, TUBULAR PRODUCTS FABRICATOR, urgent care, hospital, or group home...) When possible be specific @ -No Did you speak to anyone other than the patient for history (EMS, parent, family, police, friend...)? What history was obtained from this source @ -No Did you review nursing and triage notes (agree or disagree)? Why? @ -I reviewed and agree with nursing and triage notes Were old charts reviewed (outside hosp., previous admission, EMS record, old EKG, old radiological studies, urgent care reports/EKG's, group home records)? Report findings @ -No old charts were reviewed Differential Diagnosis (chest pain, altered mental status, abdominal pain women, abdominal pain men, vaginal bleeding, weakness, fever, dyspnea, syncope, headache, dizziness, GI bleed, back pain, seizure, CVA, palpatations, mental health, musculoskeletal)? @ -Differential Abdominal Pain Men: Appendicitis, cholecystitis, diverticulosis, ischemic bowel, pancreatitis, hepatitis, UTI, gastroenteritis, AAA, incarcerated hernia, bowel obstruction, constipation, inflammatory bowel, hepatitis, peptic ulcer disease, splenic infarction, perforated viscus, testicular torsion, this is not meant to be an all-inclusive list EKG interpreted by me (3pts min.). @ -As above X-rays interpreted by me (1pt min.). @ -None done CT interpreted by me (1pt min.). @ -CT abdomen pelvis showing horseshoe kidney, possible chronic outlet obstruction bladder, enlarged prostate U/S interpreted by me (1pt. min.). @ -None done What testing was considered but not performed or refused? (CT, X-rays, U/S, labs)? Why? @ -None What meds were considered but not given or refused? Why? @ -None Did you discuss the management of the patient with other professionals (professionals i.e. , PA, TUBULAR [employer] FABRICATOR, lab, RT, psych nurse, social media manager, coagulant dipper, teacher, ecological technical officer, case filler)? Give summary @ -EM for admission Was smoking cessation discussed for >3mins.? @ -No Was critical care preformed (if so, how long)? @ -35 minutes Were there social determinants of health that impacted care today? How? (Home lessness, low income, unemployed, alcoholism, drug addiction, transportation, low edu. Level, literacy, decrease access to med. care, senior living, rehab)? @ -No Was there de-escalation of care discussed even if they declined (Discuss DNR or withdrawal of care, Hospice)? DNR status @ -No What co-morbidities impacted this encounter? (DM, HTN, Smoking, COPD, CAD, Cancer, CVA, ARF, Chemo, Hep., AIDS, mental health diagnosis, sleep apnea, morbid obesity)? @ -None Was patient admitted / discharged? Hospital course, mention meds given and route, prescriptions, significant lab abnormalities, going to OR and other pertinent info. @ -Admitted patient was found to have new onset diabetes, hyperglycemia with h yperkalemia. Patient was given fluid bolus patient does have hyponatremia but with corrected sodium normal sodium. Patient started maintenance fluids, insulin will be transition to sliding scale. Undiagnosed new problem with uncertain prognosis? @ -No Drug Therapy requiring intensive monitoring for toxicity (Heparin, Nitro, Insulin, Cardizem)? @ -No Were any procedures done? @ -No Diagnosis/symptom? @ -New onset diabetes, hyperglycemia, hyperkalemia Acute, or Chronic, or Acute on Chronic? @ -Acute Uncomplicated (without systemic symptoms) or Complicated (systemic symptoms)? @ -Comp Side effects of treatment? @ -No Exacerbation, Progression, or Severe Exacerbation? @ -No Poses a threat to life or bodily function? How? (Chest pain, [place], [place], pneumonia, PE, COPD, DKA, ARF, appy, cholecystitis, CVA, Diverticulitis, Homicidal, Suicidal, threat to staff... and all critical care pts) @ -Yes hyperkalemia causing cardiac arrhythmia - Lab Data Result diagrams: 01/30/25 20:12 01/30/25 20:12 Lab Results 01/30/25 01/30/25 01/30/25 Range/Units 20:12 20:12 20:12 WBC 7.76 (4.50-10.00) 10*3/uL RBC 4.85 (4.40-5.60) 10*6/uL Hgb 15.7 (13.0-17.0) g/dL Hct 45.3 (39.6-50.0) % MCV 93.4 (80.0-97.0) fL MCH 32.4 H (27.0-32.0) pg MCHC 34.7 (32.0-37.0) g/dL Plt Count 233 (140-440) 10*3/uL MPV 11.6 (9.5-12.2) fL Immature Gran % (Auto) 0.4 % Neutrophils % 68.0 % Lymphocytes % 23.3 % Monocytes % 6.3 % Eosinophils % 1.5 % Basophils % 0.5 % Immature Gran # 0.03 (0.00-0.04) 10*3/uL Neutrophils # 5.27 (1.80-7.70) 10*3/uL Lymphocytes # 1.81 (0.90-5.00) 10*3/uL Monocytes # 0.49 (0.20-1.00) 10*3/uL Eosinophils # 0.12 (0.04-0.35) 10*3/uL Basophils # 0.04 (0.00-0.10) 10*3/uL VBG pH (7.31-7.41) VBG pCO2 (37-51) mmHg VBG HCO3 (24-28) mmol/L Sodium 126 L (137-145) mmol/L Potassium 6.1 H* (3.5-5.1) mmol/L Chloride 88 L (98-107) mmol/L Carbon Dioxide 29 (22-30) mmol/L Anion Gap 9 mmol/L BUN 34 H (9-20) mg/dL Creatinine 0.71 (0.66-1.25) mg/dL Est GFR (CKD-EPI)AfAm >90 (>60 ml/min/1.73 sqM) Est GFR (CKD-EPI)NonAf >90 (>60 ml/min/1.73 sqM) Glucose 870 H* (74-99) mg/dL POC Glucose (mg/dL) (70-110) mg/dL POC Glu Stack Matcher ID Plasma Lactic Acid Blaine (0.7-2.0) mmol/L Calcium 10.5 H (8.4-10.2) mg/dL Total Bilirubin 0.6 (0.2-1.3) mg/dL AST 27 (17-59) U/L ALT 33 (4-49) U/L Alkaline Phosphatase 85 (38-126) U/L Total Protein 7.1 (6.3-8.2) g/dL Albumin 4.4 (3.5-5.0) g/dL Lipase 236 (23-300) U/L Urine Color Colorless Urine Appearance Clear (Clear) Urine pH 6.0 (5.0-8.0) Ur Specific [place] 1.029 (1.001-1.035) Urine Protein Negative (Negative) Urine Glucose (UA) 4+ H (Negative) Urine Ketones Negative (Negative) Urine Blood Negative (Negative) Urine Nitrite Negative (Negative) Urine Bilirubin Negative (Negative) Urine Urobilinogen <2.0 (<2.0) mg/dL Ur Leukocyte Esterase Negative (Negative) 01/30/25 01/30/25 01/30/25 Range/Units 20:12 20:56 21:24 WBC (4.50-10.00) 10*3/uL RBC (4.40-5.60) 10*6/uL Hgb (13.0-17.0) g/dL Hct (39.6-50.0) % MCV (80.0-97.0) fL MCH (27.0-32.0) pg MCHC (32.0-37.0) g/dL Plt Count (140-440) 10*3/uL MPV (9.5-12.2) fL Immature Gran % (Auto) % Neutrophils % % Lymphocytes % % Monocytes % % Eosinophils % % Basophils % % Immature Gran # (0.00-0.04) 10*3/uL Neutrophils # (1.80-7.70) 10*3/uL Lymphocytes # (0.90-5.00) 10*3/uL Monocytes # (0.20-1.00) 10*3/uL Eosinophils # (0.04-0.35) 10*3/uL Basophils # (0.00-0.10) 10*3/uL VBG pH 7.42 H (7.31-7.41) VBG pCO2 44 (37-51) mmHg VBG HCO3 28 (24-28) mmol/L Sodium (137-145) mmol/L Potassium (3.5-5.1) mmol/L Chloride (98-107) mmol/L Carbon Dioxide (22-30) mmol/L Anion Gap mmol/L BUN (9-20) mg/dL Creatinine (0.66-1.25) mg/dL Est GFR (CKD-EPI)AfAm (>60 ml/min/1.73 sqM) Est GFR (CKD-EPI)NonAf (>60 ml/min/1.73 sqM) Glucose (74-99) mg/dL POC Glucose (mg/dL) >600 H* (70-110) mg/dL POC Glu Stack Matcher ID [place] Plasma Lactic Acid Blaine 2.3 H* (0.7-2.0) mmol/L Calcium (8.4-10.2) mg/dL Total Bilirubin (0.2-1.3) mg/dL AST (17-59) U/L ALT (4-49) U/L Alkaline Phosphatase (38-126) U/L Total Protein (6.3-8.2) g/dL Albumin (3.5-5.0) g/dL Lipase (23-300) U/L Urine Color Urine Appearance (Clear) Urine pH (5.0-8.0) Ur Specific [place] (1.001-1.035) Urine Protein (Negative) Urine Glucose (UA) (Negative) Urine Ketones (Negative) Urine Blood (Negative) Urine Nitrite (Negative) Urine Bilirubin (Negative) Urine Urobilinogen (<2.0) mg/dL Ur Leukocyte Esterase (Negative) - EKG Data -: EKG Interpreted by Me EKG Comments: EKG performed at 21: 16 sinus rhythm with a rate of 85 RI 139 QRS 152 QT/QTc 372/414 Critical Care Time Critical Care Time: Yes Total Critical Care Time: 35 Disposition Clinical Impression: Diabetes mellitus, new onset, Hyperglycemia, Hyperkalemia Disposition: ADMITTED IP TO THIS HOSP Condition: Fair Referrals: None,Stated [Primary Care Provider] - 1-2 days Time of Disposition: 22:18
[2025-01-30] MEDS: SODIUM CHLORIDE 0.9% 1,000 ML IV ONE (20:27)
[2025-01-30 20:34] LABS: Basophils # (A) 0.04 10*3/uL (0.00-0.10); Basophils % (A) 0.5 %; Eosinophils # (A) 0.12 10*3/uL (0.04-0.35); Eosinophils % (A) 1.5 %; HCT 45.3 % (39.6-50.0); HGB 15.7 g/dL (13.0-17.0); Lymphocytes # (A) 1.81 10*3/uL (0.90-5.00); Lymphocytes % (A) 23.3 %; MCH 32.4 pg (27.0-32.0); MCHC 34.7 g/dL (32.0-37.0); MCV 93.4 fL (80.0-97.0); Mean Platelet Volume 11.6 fL (9.5-12.2); Monocytes # (A) 0.49 10*3/uL (0.20-1.00); Monocytes % (A) 6.3 %; Neutrophils # (A) 5.27 10*3/uL (1.80-7.70); Platelet Count 233 10*3/uL (140-440); RBC 4.85 10*6/uL (4.40-5.60); RDW 12.1 % (11.5-14.5); WBC 7.76 10*3/uL (4.50-10.00)
[2025-01-30 20:36] LABS: Appearance,Urine Clear (Clear); Bilirubin,Urine Negative (Negative); Blood,Urine Negative (Negative); Color,Urine Colorless; Glucose,Urine (UA) 4+ (Negative); Ketones,Urine Negative (Negative); Leukocyte Esterase,Urine Negative (Negative); Nitrite,Urine Negative (Negative); Protein,Urine Negative (Negative); Specific Gravity,Urine 1.029 (1.001-1.035); Urobilinogen,Urine <2.0 mg/dL (<2.0)
[2025-01-30 20:44] LABS: ALT 33 U/L (4-49); African American GFR (CKD) >90 (>60 ml/min/1.73 sqM); Albumin 4.4 g/dL (3.5-5.0); Anion Gap 9 mmol/L; Blood Urea Nitrogen 34 mg/dL (9-20); Calcium 10.5 mg/dL (8.4-10.2); Carbon Dioxide 29 mmol/L (22-30); Chloride 88 mmol/L (98-107); Lipase 236 U/L (23-300); Non-African American GFR(CKD) >90 (>60 ml/min/1.73 sqM); Sodium 126 mmol/L (137-145); Total Bilirubin 0.6 mg/dL (0.2-1.3); Total Protein 7.1 g/dL (6.3-8.2)
[2025-01-30 20:53] LABS: AST 27 U/L (17-59); Glucose 870 mg/dL (74-99)
[2025-01-30 20:54] LABS: Alkaline Phosphatase 85 U/L (38-126)
[2025-01-30 20:55] LABS: Potassium 6.1 mmol/L (3.5-5.1)
--- NOTE | 2025-01-30 21:22 | CT ---
EXAMINATION TYPE: CT abdomen pelvis wo con CT DLP: 493.8 mGycm, Automated exposure control for dose reduction was used. DATE OF EXAM: 01/30/2025 8:53 PM COMPARISON: None CLINICAL INDICATION:Male, 59 years old with history of abdominal pain; Pt to ED for abd pain "for a l ittle while". Believes he has prostate cancer TECHNIQUE: Standard CT of the abdomen and pelvis without IV or oral contrast. Lack of IV or oral co ntrast limits evaluation of solid and hollow organ viscera. Coronal and sagittal reformats were perfo rmed. FINDINGS: LOWER CHEST: Unremarkable noncontrast appearance. ABDOMEN LIVER: Unremarkable noncontrast appearance. GALLBLADDER AND BILE DUCTS: Unremarkable noncontrast appearance. PANCREAS: Unremarkable noncontrast appearance. SPLEEN: Unremarkable. ADRENAL GLANDS: Unremarkable. KIDNEYS AND URETERS: Horseshoe kidney with a right sided 3.9 cm simple appearing cyst. No hydronephro sis on the right. There is mild left hydronephrosis without obstructing calculus. No hydroureter iden tified. PELVIS BLADDER: Moderately distended. REPRODUCTIVE: Coarse calcifications of the prostate gland are identified. Median lobe hypertrophy of the prostate gland which indents upon the urinary bladder base. ABDOMEN & PELVIS STOMACH AND BOWEL: Stomach and duodenum are unremarkable. Mild colonic stool burden. The appendix sisi sures up to 8 mm in diameter without surrounding inflammatory changes. No evidence of bowel obstructi on. PERITONEUM: No evidence of pneumoperitoneum or free fluid. VASCULATURE: Mild atherosclerotic calcifications are present throughout the abdominal aorta and its b ranches. No evidence of aortic aneurysm. MUSCULOSKELETAL: No acute osseous abnormalities. No aggressive osseous lesion. Degenerative changes o f bilateral SI joints with anterior bridging. Mild multilevel degenerative disease. Right transverse process of L5 resulting in pseudoarticulation with the sacrum. LYMPH NODES: No gross evidence for lymphadenopathy. SOFT TISSUE/ABDOMINAL WALL: Unremarkable IMPRESSION: 1. Horseshoe kidney with left-sided hydronephrosis. No obstructing calculus or hydroureter identifie d. May represent a congenital UPJ obstruction. 2. Borderline dilated appendix without surrounding inflammatory changes to suggest acute appendicitis . Correlate clinically. 3. Moderately distended urinary bladder with median lobe hypertrophy of the prostate gland which inde nts upon the bladder base. Correlate for chronic bladder outlet obstruction. [facility], , 01/30/2025 9:20 PM
[2025-01-30] MEDS: INSULIN REGULAR 100 UNIT in SODIUM CHLORIDE 0.9% 100 ML IV SCH ×2 (21:25→23:56)
[2025-01-30] MEDS: INSULIN REGULAR BOLUS (FROM DRIP BAG) IV ONE (21:26)
[2025-01-30] MEDS: SODIUM CHLORIDE 0.9% 500 ML 500 ML IV ONE (21:27)
[2025-01-30] MEDS: SODIUM CHLORIDE 0.9% 1,000 ML IV SCH ×2 (21:28→21:58)
[2025-01-30 21:30] LABS: Glucose,Whole Blood >600 mg/dL (70-110)
[2025-01-30 21:37] LABS: VBG PH 7.42 (7.31-7.41)
[2025-01-30] MEDS: D5-0.45% NACL WITH KCL 20MEQ/L 1,000 ML IV SCH (22:15)
[2025-01-30] MEDS ORDERED: NALOXONE 0.4 MG/ML 1 ML VIAL IV PRN (22:18)
[2025-01-30] MEDS ORDERED: ACETAMINOPHEN TAB 325 MG TAB PO PRN (22:18)
[2025-01-30 23:04] LABS: Glucose,Whole Blood >600 mg/dL (70-110)
[2025-01-30] MEDS ORDERED: DEXTROSE 50% SYRINGE 50 ML IVP PRN ×2 (23:29)
[2025-01-31 00:06] LABS: Glucose,Whole Blood 449 mg/dL (70-110)
[2025-01-31 01:05] LABS: Glucose,Whole Blood 88 mg/dL (70-110)
[2025-01-31 02:03] LABS: Glucose,Whole Blood 182 mg/dL (70-110)
[2025-01-31 03:00] LABS: Glucose,Whole Blood 310 mg/dL (70-110)
[2025-01-31] MEDS: D5-0.45% NACL WITH KCL 20MEQ/L 1,000 ML IV SCH (03:04)
[2025-01-31] MEDS: DEXTROSE 5%-0.9% NACL 1,000 ML IV SCH (03:21)
[2025-01-31 04:14] LABS: Glucose,Whole Blood 279 mg/dL (70-110)
[2025-01-31 05:10] LABS: Glucose,Whole Blood 229 mg/dL (70-110)
[2025-01-31 06:00] LABS: Glucose,Whole Blood 218 mg/dL (70-110)
[2025-01-31] MEDS: INSULIN LISPRO (HumaLOG) 100 UNIT/ML 10 mL VL SQ SCH (06:34)
[2025-01-31 06:57] LABS: Glucose,Whole Blood 95 mg/dL (70-110)
[2025-01-31 07:01] LABS: African American GFR (CKD) >90 (>60 ml/min/1.73 sqM); Anion Gap 4 mmol/L; Blood Urea Nitrogen 25 mg/dL (9-20); Calcium 9.6 mg/dL (8.4-10.2); Carbon Dioxide 29 mmol/L (22-30); Chloride 102 mmol/L (98-107); Glucose 112 mg/dL (74-99); Non-African American GFR(CKD) >90 (>60 ml/min/1.73 sqM); Potassium 3.4 mmol/L (3.5-5.1); Sodium 135 mmol/L (137-145)
[2025-01-31 08:12] LABS: Glucose,Whole Blood 225 mg/dL (70-110)
[2025-01-31 09:13] LABS: Glucose,Whole Blood 280 mg/dL (70-110)
[2025-01-31 11:02] LABS: Glucose,Whole Blood 239 mg/dL (70-110)
[2025-01-31 11:02] LABS: Glucose,Whole Blood 313 mg/dL (70-110)
[2025-01-31] MEDS ORDERED: DEXTROSE 50% SYRINGE 50 ML IVP PRN ×2 (11:50)
[2025-01-31] MEDS: INSULIN GLARGINE (LANTUS) 100 UNIT/ML SYR SQ SCH (12:41)
[2025-01-31 13:18] VITALS: BMI 23.3
--- NOTE | 2025-01-31 15:56 | P.GSCN ---
History of Present Illness Consult date: 01/31/25 History of present illness: CHIEF COMPLAINT: Abdominal pain HISTORY OF PRESENT ILLNESS: This is a 59-year-old male who presented with lower abdominal pain with dysuria and frequency for the past 2 days. He denies any nausea or vomiting. He reports having normal bowel movements. He does report feeling warm. He denies any prior history of diabetes. He presented with elevated blood sugars over 600 his A1c was 15. He had a CT scan abdomen and pelvis that reported a horseshoe kidney with left hydronephrosis. No obstructing calculus. May represent a congenital UPJ obstruction. Borderline dilated appendix without surrounding inflammatory changes suggest acute appendicitis. Moderately distended urinary bladder with median lobe hypertrophy of the prostate gland which indents upon the bladder base correlate for chronic bladder outlet obstruction. Patient reports feeling that he is able to completely empty his bladder. He reports his father had prostate cancer. Patient denies any prior abdominal surgeries. He does report having a myocardial infarction 2 years ago. PAST MEDICAL HISTORY: Dementia, hypertension, PR PAST SURGICAL HISTORY: Denies any abdominal surgical history MEDICATIONS: See below ALLERGIES: See below SOCIAL HISTORY: No illicit drug use. Nicotine dependence REVIEW OF SYSTEMS: CONSTITUTIONAL: Denies fever or chills. HEENT: Denies blurred vision, vision changes, or eye pain. Denies hemoptysis CARDIOVASCULAR: Denies chest pain or pressure. RESPIRATORY: No shortness of breath. GASTROINTESTINAL: See HPI for pertinent findings HEMATOLOGIC: Denies bleeding disorders. GENITOURINARY: Denies any blood in urine or increased urinary frequency. SKIN: Denies pruitis. Denies rash. PHYSICAL EXAM: VITAL SIGNS: Reviewed GENERAL: Well-developed in no acute distress. HEENT: No sclera icterus. Extraocular movements grossly intact. Moist buccal mucosa. Head is atraumatic, normocephalic. No nasal drainage. ABDOMEN: Soft. Nondistended. Tenderness with palpation to suprapubic area and right lower quadrant. No rebound tenderness or guarding NEUROLOGIC: Alert and oriented. Cranial nerves II through XII grossly intact. LABORATORY DATA: WBC 7.76 HGB 15.7 plt 233 Na 126 to 135 K 6.1 to 3.4 cr 0.53 Glucose greater than 600 Hemoglobin A1c 15.0 Lactic acid 3.0 down to 0.8 IMAGING: CT scan abdomen pelvis reports horseshoe kidney with left-sided hydronephrosis. No obstructing calculus or hydroureter identified. May represent a congenital UPJ obstruction. Borderline dilated appendix without surrounding inflammatory changes to suggest acute appendicitis. Moderately distended urinary bladder with median lobe hypertrophy of the prostate gland which indents upon the bladder base. Correlate for chronic bladder outlet obstruction. ASSESSMENT: 1. Right lower quadrant and suprapubic abdominal pain. Dilated appendix noted on CT scan with no inflammatory changes to suggest acute appendicitis 2. Moderately distended urinary bladder with median lobe hypertrophy of the prostate gland. Possible chronic bladder outlet obstruction PLAN: -Continue to monitor -Repeat CBC in a.m. -Consult urology regarding abnormal CT scan findings -Medical management for elevated blood sugars Physician Industrial Safety And Health Specialist note has been reviewed by physician. Signing provider agrees with the documented findings, assessment, and plan of care. Past Medical History Past Medical History: Dementia, Diabetes Mellitus, Hypertension History of Any Multi-Drug Resistant Organisms: None Reported Past Surgical History: Tonsillectomy Past Anesthesia/Blood Transfusion Reactions: No Reported Reaction Past Psychological History: No Psychological Hx Reported Smoking Status: Current every day smoker Past Alcohol Use History: None Reported Past Drug Use History: None Reported Medications and Allergies Home Medications Medication Instructions Recorded Confirmed Type No Known Home Medications 01/31/25 01/31/25 History Allergies Allergy/AdvReac Type Severity Reaction Status Date / Time No Known Allergies Allergy Verified 01/31/25 09:10 Surgical - Exam Vital Signs Temp Pulse Resp BP Pulse Ox 98.3 F 95 16 154/91 98 01/30/25 19:40 01/30/25 19:40 01/30/25 19:40 01/30/25 19:40 01/30/25 19:40 Results - Labs 01/30/25 20:12 01/31/25 06:21 Abnormal Lab Results - Last 24 Hours (Table) 01/30/25 01/30/25 01/30/25 Range/Units 20:12 20:12 20:12 MCH 32.4 H (27.0-32.0) pg VBG pH (7.31-7.41) Sodium 126 L (137-145) mmol/L Potassium 6.1 H* (3.5-5.1) mmol/L Chloride 88 L (98-107) mmol/L BUN 34 H (9-20) mg/dL Creatinine (0.66-1.25) mg/dL Glucose 870 H* (74-99) mg/dL POC Glucose (mg/dL) (70-110) mg/dL Hemoglobin A1c (<=6.0) % Plasma Lactic Acid [place]aine (0.7-2.0) mmol/L Calcium 10.5 H (8.4-10.2) mg/dL Urine Glucose (UA) 4+ H (Negative) 01/30/25 01/30/25 01/30/25 Range/Units 20:12 20:56 21:24 MCH (27.0-32.0) pg VBG pH 7.42 H (7.31-7.41) Sodium (137-145) mmol/L Potassium (3.5-5.1) mmol/L Chloride (98-107) mmol/L BUN (9-20) mg/dL Creatinine (0.66-1.25) mg/dL Glucose (74-99) mg/dL POC Glucose (mg/dL) >600 H* (70-110) mg/dL Hemoglobin A1c (<=6.0) % Plasma Lactic Acid [place]aine 2.3 H* (0.7-2.0) mmol/L Calcium (8.4-10.2) mg/dL Urine Glucose (UA) (Negative) 01/30/25 01/30/25 01/31/25 Range/Units 23:02 23:05 00:04 MCH (27.0-32.0) pg VBG pH (7.31-7.41) Sodium (137-145) mmol/L Potassium (3.5-5.1) mmol/L Chloride (98-107) mmol/L BUN (9-20) mg/dL Creatinine (0.66-1.25) mg/dL Glucose (74-99) mg/dL POC Glucose (mg/dL) >600 H* 449 H (70-110) mg/dL Hemoglobin A1c (<=6.0) % Plasma Lactic Acid [place]aine 3.0 H* (0.7-2.0) mmol/L Calcium (8.4-10.2) mg/dL Urine Glucose (UA) (Negative) 01/31/25 01/31/25 01/31/25 Range/Units 02:02 02:58 04:12 MCH (27.0-32.0) pg VBG pH (7.31-7.41) Sodium (137-145) mmol/L Potassium (3.5-5.1) mmol/L Chloride (98-107) mmol/L BUN (9-20) mg/dL Creatinine (0.66-1.25) mg/dL Glucose (74-99) mg/dL POC Glucose (mg/dL) 182 H 310 H 279 H (70-110) mg/dL Hemoglobin A1c (<=6.0) % Plasma Lactic Acid [place]aine (0.7-2.0) mmol/L Calcium (8.4-10.2) mg/dL Urine Glucose (UA) (Negative) 01/31/25 01/31/25 01/31/25 Range/Units 05:09 05:59 06:21 MCH (27.0-32.0) pg VBG pH (7.31-7.41) Sodium 135 L (137-145) mmol/L Potassium 3.4 L (3.5-5.1) mmol/L Chloride (98-107) mmol/L BUN 25 H (9-20) mg/dL Creatinine 0.53 L (0.66-1.25) mg/dL Glucose 112 H (74-99) mg/dL POC Glucose (mg/dL) 229 H 218 H (70-110) mg/dL Hemoglobin A1c (<=6.0) % Plasma Lactic Acid [place]aine (0.7-2.0) mmol/L Calcium (8.4-10.2) mg/dL Urine Glucose (UA) (Negative) 01/31/25 01/31/25 01/31/25 Range/Units 06:21 08:10 09:12 MCH (27.0-32.0) pg VBG pH (7.31-7.41) Sodium (137-145) mmol/L Potassium (3.5-5.1) mmol/L Chloride (98-107) mmol/L BUN (9-20) mg/dL Creatinine (0.66-1.25) mg/dL Glucose (74-99) mg/dL POC Glucose (mg/dL) 225 H 280 H (70-110) mg/dL Hemoglobin A1c 15.0 H (<=6.0) % Plasma Lactic Acid [place]aine (0.7-2.0) mmol/L Calcium (8.4-10.2) mg/dL Urine Glucose (UA) (Negative) 01/31/25 01/31/25 Range/Units 09:58 11:01 MCH (27.0-32.0) pg VBG pH (7.31-7.41) Sodium (137-145) mmol/L Potassium (3.5-5.1) mmol/L Chloride (98-107) mmol/L BUN (9-20) mg/dL Creatinine (0.66-1.25) mg/dL Glucose (74-99) mg/dL POC Glucose (mg/dL) 313 H 239 H (70-110) mg/dL Hemoglobin A1c (<=6.0) % Plasma Lactic Acid [place]aine (0.7-2.0) mmol/L Calcium (8.4-10.2) mg/dL Urine Glucose (UA) (Negative) Diabetes panel 01/30/25 01/31/25 01/31/25 Range/Units 20:12 03:04 06:21 Sodium 126 L 135 L (137-145) mmol/L Potassium 6.1 H* 3.8 3.4 L (3.5-5.1) mmol/L Chloride 88 L 102 (98-107) mmol/L Carbon Dioxide 29 29 (22-30) mmol/L BUN 34 H 25 H (9-20) mg/dL Creatinine 0.71 0.53 L (0.66-1.25) mg/dL Glucose 870 H* 112 H (74-99) mg/dL Hemoglobin A1c (<=6.0) % Calcium 10.5 H 9.6 (8.4-10.2) mg/dL AST 27 (17-59) U/L ALT 33 (4-49) U/L Alkaline Phosphatase 85 (38-126) U/L Total Protein 7.1 (6.3-8.2) g/dL Albumin 4.4 (3.5-5.0) g/dL 01/31/25 Range/Units 06:21 Sodium (137-145) mmol/L Potassium (3.5-5.1) mmol/L Chloride (98-107) mmol/L Carbon Dioxide (22-30) mmol/L BUN (9-20) mg/dL Creatinine (0.66-1.25) mg/dL Glucose (74-99) mg/dL Hemoglobin A1c 15.0 H (<=6.0) % Calcium (8.4-10.2) mg/dL AST (17-59) U/L ALT (4-49) U/L Alkaline Phosphatase (38-126) U/L Total Protein (6.3-8.2) g/dL Albumin (3.5-5.0) g/dL Calcium panel 01/30/25 01/31/25 Range/Units 20:12 06:21 Calcium 10.5 H 9.6 (8.4-10.2) mg/dL Albumin 4.4 (3.5-5.0) g/dL Pituitary panel 01/30/25 01/31/25 01/31/25 Range/Units 20:12 03:04 06:21 Sodium 126 L 135 L (137-145) mmol/L Potassium 6.1 H* 3.8 3.4 L (3.5-5.1) mmol/L Chloride 88 L 102 (98-107) mmol/L Carbon Dioxide 29 29 (22-30) mmol/L BUN 34 H 25 H (9-20) mg/dL Creatinine 0.71 0.53 L (0.66-1.25) mg/dL Glucose 870 H* 112 H (74-99) mg/dL Calcium 10.5 H 9.6 (8.4-10.2) mg/dL Adrenal panel 01/30/25 01/31/25 01/31/25 Range/Units 20:12 03:04 06:21 Sodium 126 L 135 L (137-145) mmol/L Potassium 6.1 H* 3.8 3.4 L (3.5-5.1) mmol/L Chloride 88 L 102 (98-107) mmol/L Carbon Dioxide 29 29 (22-30) mmol/L BUN 34 H 25 H (9-20) mg/dL Creatinine 0.71 0.53 L (0.66-1.25) mg/dL Glucose 870 H* 112 H (74-99) mg/dL Calcium 10.5 H 9.6 (8.4-10.2) mg/dL Total Bilirubin 0.6 (0.2-1.3) mg/dL AST 27 (17-59) U/L ALT 33 (4-49) U/L Alkaline Phosphatase 85 (38-126) U/L Total Protein 7.1 (6.3-8.2) g/dL Albumin 4.4 (3.5-5.0) g/dL
[2025-01-31 16:17] LABS: Glucose,Whole Blood 132 mg/dL (70-110)
[2025-01-31 20:09] LABS: Glucose,Whole Blood 299 mg/dL (70-110)
[2025-01-31] MEDS: HEPARIN SODIUM,PORCINE 5,000 UNIT/ML 1 ML VIAL SQ SCH (20:22)
--- NOTE | 2025-02-01 01:17 | HP ---
HISTORY AND PHYSICAL CHIEF COMPLAINT: Abdominal pain. HISTORY OF PRESENT ILLNESS: This 59-year-old gentleman apparently with a past history of dementia, who has recently moved to [facility], originally from [place], moved from [place], who was complaining of weakness, abdominal pain. The patient is concerned with prostate cancer as well because of family history. The patient is evaluated, found to have blood sugar more than 600. The patient is not following with any primary physician. There was no ketoacidosis. CT scan of the abdomen pelvis showed multiple abnormalities including horseshoe kidneys with left-sided hydronephrosis, borderline dilated appendix as well as moderately distended urinary bladder. The patient is being admitted for further evaluation and treatment. There is no any history of any history of fever, rigors, or chills at this time. PAST MEDICAL HISTORY: History of dementia, diabetes mellitus type 2, history of hypertension, noncompliant with the medication. MEDICATIONS: None. ALLERGIES: None. FAMILY HISTORY: No history of heart disease or strokes in the family. SOCIAL HISTORY: Smoking daily. REVIEW OF SYSTEMS: Fourteen-point review of systems negative except as mentioned earlier. PHYSICAL EXAMINATION: VITAL SIGNS: Pulse 96, blood pressure 199/66, respirations 17. HEENT: Conjunctivae normal. NECK: No JVD. CARDIOVASCULAR: S1, S2. RESPIRATIONS: Breath sounds diminished at the bases. A few scattered rhonchi. ABDOMEN: Soft. Mild diffuse discomfort. No guarding. No masses. LEGS: No edema. NERVOUS SYSTEM: Nonfocal. LABORATORY DATA: Glucose 239, rest of the labs are noted. ASSESSMENT: 1. Abdominal pain for evaluation, rule out appendicitis. 2. Horseshoe kidneys with left-sided hydronephrosis on the CAT scan. 3. Prostatomegaly, for evaluation. 4. Diabetes mellitus type 2, uncontrolled with hyperglycemia with no evidence of ketosis. 5. Hyponatremia. 6. Hyperkalemia. 7. Hypertension history. 8. History of dementia apparently. RECOMMENDATIONS: This is a 59-year-old gentleman, who presented with multiple complex medical issues. We will monitor the patient closely. Continue with the current management, continue with symptomatic treatment. Monitor blood sugars closely. Initiate the small dose of Lantus. Hemoglobin A1c. I would also recommend surgical evaluation because of the abdominal pain. Symptomatic treatment will be provided. Guarded prognosis because of multiple complex medical conditions. Further recommendations to follow. MMODL / IJN: [id number] /
[2025-02-01 05:51] LABS: Glucose,Whole Blood 229 mg/dL (70-110)
[2025-02-01] MEDS: PANTOPRAZOLE 40 MG TABLET PO SCH (06:30)
[2025-02-01 08:17] LABS: Basophils # (A) 0.03 10*3/uL (0.00-0.10); Basophils % (A) 0.4 %; Eosinophils # (A) 0.26 10*3/uL (0.04-0.35); Eosinophils % (A) 3.8 %; HCT 40.7 % (39.6-50.0); HGB 13.6 g/dL (13.0-17.0); Lymphocytes # (A) 3.22 10*3/uL (0.90-5.00); Lymphocytes % (A) 47.4 %; MCH 31.6 pg (27.0-32.0); MCHC 33.4 g/dL (32.0-37.0); MCV 94.4 fL (80.0-97.0); Mean Platelet Volume 11.2 fL (9.5-12.2); Monocytes # (A) 0.35 10*3/uL (0.20-1.00); Monocytes % (A) 5.2 %; Neutrophils # (A) 2.91 10*3/uL (1.80-7.70); Neutrophils % (A) 42.9 %; Platelet Count 194 10*3/uL (140-440); RBC 4.31 10*6/uL (4.40-5.60); RDW 11.9 % (11.5-14.5); WBC 6.79 10*3/uL (4.50-10.00)
[2025-02-01 08:39] LABS: ALT 25 U/L (4-49); AST 28 U/L (17-59); African American GFR (CKD) >90 (>60 ml/min/1.73 sqM); Albumin 3.2 g/dL (3.5-5.0); Alkaline Phosphatase 63 U/L (38-126); Anion Gap 5 mmol/L; Blood Urea Nitrogen 14 mg/dL (9-20); Carbon Dioxide 26 mmol/L (22-30); Chloride 101 mmol/L (98-107); Glucose 210 mg/dL (74-99); Non-African American GFR(CKD) >90 (>60 ml/min/1.73 sqM); Potassium 4.5 mmol/L (3.5-5.1); Sodium 132 mmol/L (137-145); Total Bilirubin 0.3 mg/dL (0.2-1.3); Total Protein 5.4 g/dL (6.3-8.2)
[2025-02-01] MEDS: NICOTINE 14MG/24HR PATCH TRANSDERM SCH (09:51)
--- NOTE | 2025-02-01 10:36 | P.GSCN ---
History of Present Illness Consult date: 02/01/25 History of present illness: 59 yo male admitted with abdominal pain, weakness and ketoacidosis. The patient has moved from [facility] to [place]. HE was brought her by family. He is worried about prostate cancer due to a fh of ca prostate. HE had a ct scan of the abdomen that shows a horseshoe kidney with mild left hydronephrosis. The prostate is enlarged with a middle lobe and the bladder on ct scan is moderately full THere is no psa noted. The patient does have notable urinary tract symptoms. He has hesitancy frequency urgency and urgency to the point of incontinence. He has never been treated for symptomatic BPH. He has never seen a urologist. There has been no hematuria dysuria. Has never had a urine infection. Because of his father and brother he is worried about prostate cancer. Review of Systems All systems: negative Past Medical History Past Medical History: Dementia, Diabetes Mellitus, Hypertension History of Any Multi-Drug Resistant Organisms: None Reported Past Surgical History: Tonsillectomy Past Anesthesia/Blood Transfusion Reactions: No Reported Reaction Past Psychological History: No Psychological Hx Reported Smoking Status: Current every day smoker Past Alcohol Use History: None Reported Past Drug Use History: None Reported Medications and Allergies Home Medications Medication Instructions Recorded Confirmed Type No Known Home Medications 01/31/25 01/31/25 History Allergies Allergy/AdvReac Type Severity Reaction Status Date / Time No Known Allergies Allergy Verified 01/31/25 09:10 Surgical - Exam Vital Signs Temp Pulse Resp BP Pulse Ox 98.3 F 95 16 154/91 98 01/30/25 19:40 01/30/25 19:40 01/30/25 19:40 01/30/25 19:40 01/30/25 19:40 - General well developed, well nourished, no distress - Eyes normal ocular movement, no icteric - ENT no hearing loss, no congestion - Neck no masses, trachea midline - Respiratory normal respiratory effort, clear to auscultation - Abdomen Abdomen: soft, non tender, no guarding, no rigid, no rebound - Genitourinary 30 to 40 g soft and benign - Integumentary no rash, no abnormal pigmentation - Neurologic no disoriented, no combative - Psychiatric oriented to time, oriented to person, oriented to place, speech is normal, memory intact Results - Labs 02/01/25 07:45 02/01/25 07:45 Abnormal Lab Results - Last 24 Hours (Table) 01/31/25 01/31/25 01/31/25 Range/Units 06:21 06:21 08:10 Sodium 135 L (137-145) mmol/L Potassium 3.4 L (3.5-5.1) mmol/L BUN 25 H (9-20) mg/dL Creatinine 0.53 L (0.66-1.25) mg/dL Glucose 112 H (74-99) mg/dL POC Glucose (mg/dL) 225 H (70-110) mg/dL Hemoglobin A1c 15.0 H (<=6.0) % 01/31/25 01/31/25 01/31/25 Range/Units 09:12 09:58 11:01 Sodium (137-145) mmol/L Potassium (3.5-5.1) mmol/L BUN (9-20) mg/dL Creatinine (0.66-1.25) mg/dL Glucose (74-99) mg/dL POC Glucose (mg/dL) 280 H 313 H 239 H (70-110) mg/dL Hemoglobin A1c (<=6.0) % 01/31/25 01/31/25 02/01/25 Range/Units 16:15 20:07 05:49 Sodium (137-145) mmol/L Potassium (3.5-5.1) mmol/L BUN (9-20) mg/dL Creatinine (0.66-1.25) mg/dL Glucose (74-99) mg/dL POC Glucose (mg/dL) 132 H 299 H 229 H (70-110) mg/dL Hemoglobin A1c (<=6.0) % Diabetes panel 01/31/25 01/31/25 Range/Units 06:21 06:21 Sodium 135 L (137-145) mmol/L Potassium 3.4 L (3.5-5.1) mmol/L Chloride 102 (98-107) mmol/L Carbon Dioxide 29 (22-30) mmol/L BUN 25 H (9-20) mg/dL Creatinine 0.53 L (0.66-1.25) mg/dL Glucose 112 H (74-99) mg/dL Hemoglobin A1c 15.0 H (<=6.0) % Calcium 9.6 (8.4-10.2) mg/dL Calcium panel 01/31/25 Range/Units 06:21 Calcium 9.6 (8.4-10.2) mg/dL Pituitary panel 01/31/25 Range/Units 06:21 Sodium 135 L (137-145) mmol/L Potassium 3.4 L (3.5-5.1) mmol/L Chloride 102 (98-107) mmol/L Carbon Dioxide 29 (22-30) mmol/L BUN 25 H (9-20) mg/dL Creatinine 0.53 L (0.66-1.25) mg/dL Glucose 112 H (74-99) mg/dL Calcium 9.6 (8.4-10.2) mg/dL Adrenal panel 01/31/25 Range/Units 06:21 Sodium 135 L (137-145) mmol/L Potassium 3.4 L (3.5-5.1) mmol/L Chloride 102 (98-107) mmol/L Carbon Dioxide 29 (22-30) mmol/L BUN 25 H (9-20) mg/dL Creatinine 0.53 L (0.66-1.25) mg/dL Glucose 112 H (74-99) mg/dL Calcium 9.6 (8.4-10.2) mg/dL Assessment and Plan Assessment: Impression: uncontrolled diabetes. abdominal pain. horseshoe kidney, congenital with secondary hydronephrosis, enlarged prostate Tulio,mmendations. The horseshoe kidney is a relatively common congenital abnormality. the hydro is commonly found due the rotation and crossing vessels It is not affecting the renal fumction. the patient does have an enlarged prostate. I will obtain a postvoid residual. I will also check a PSA. I will probably start him on Flomax after the postvoid residual. Time with Patient: Greater than 30
[2025-02-01 11:22] LABS: Glucose,Whole Blood 247 mg/dL (70-110)
--- NOTE | 2025-02-01 11:31 | P.PN ---
Subjective Progress Note Date: 02/01/25 SURGICAL PROGRESS NOTE CHIEF COMPLAINT: Abdominal pain HISTORY OF PRESENT ILLNESS: Patient reports his right lower quadrant and suprapubic abdominal pain have resolved. He reports his pain did improve after a bowel movement yesterday. He is tolerating diet. Denies any nausea or vomiting. Patient seen by urology service. Afebrile. WBC 6.79 glucose 247 PHYSICAL EXAM: VITAL SIGNS: Reviewed. GENERAL: Well-developed in no acute distress. ABDOMEN: Soft. Nondistended. Nontender. NEUROLOGIC: Alert and oriented. Cranial nerves II through XII grossly intact. ASSESSMENT: 1. Right lower quadrant suprapubic abdominal pain resolved after BM 2. Dilated appendix on CT scan with no inflammatory changes to suggest appendicitis. White count normal. PLAN: - Continue regular diet - No surgical intervention planned - Diabetes management per medicine team - Urology consult recommendations noted and appreciated Physician Electrical Equipment Technician note has been reviewed by physician. Signing provider agrees with the documented findings, assessment, and plan of care. Objective - Vital Signs Vital signs: Vital Signs Temp 97.7 F 02/01/25 08:25 Pulse 84 02/01/25 08:25 Resp 16 02/01/25 08:25 BP 123/69 02/01/25 08:25 Pulse Ox 98 02/01/25 08:25 FiO2 Intake & Output 01/31/25 02/01/25 02/01/25 18:59 06:59 18:59 Intake Total 362.825 540 180 Output Total 675 Balance -312.175 540 180 Weight 67.5 kg 67.6 kg Intake: Intake, IV Titration 6.825 Amount Insulin Regular 100 unit 6.825 In Sodium Chloride 0.9% 100 ml @ Titrate IV .Q0M [facility] Rx#:[id number] Oral 356 540 180 Output: Urine 675 Other: Voiding Method Urinal Urinal Urinal # Voids 1 1 0 - Labs CBC & Chem 7: 02/01/25 07:45 02/01/25 07:45 Labs: Abnormal Lab Results - Last 24 Hours (Table) 01/31/25 01/31/25 01/31/25 Range/Units 06:21 16:15 20:07 RBC (4.40-5.60) 10*6/uL Sodium (137-145) mmol/L Creatinine (0.66-1.25) mg/dL Glucose (74-99) mg/dL POC Glucose (mg/dL) 132 H 299 H (70-110) mg/dL Hemoglobin A1c 15.0 H (<=6.0) % Total Protein (6.3-8.2) g/dL Albumin (3.5-5.0) g/dL 02/01/25 02/01/25 02/01/25 Range/Units 05:49 07:45 07:45 RBC 4.31 L (4.40-5.60) 10*6/uL Sodium 132 L (137-145) mmol/L Creatinine 0.55 L (0.66-1.25) mg/dL Glucose 210 H (74-99) mg/dL POC Glucose (mg/dL) 229 H (70-110) mg/dL Hemoglobin A1c (<=6.0) % Total Protein 5.4 L (6.3-8.2) g/dL Albumin 3.2 L (3.5-5.0) g/dL 02/01/25 Range/Units 11:20 RBC (4.40-5.60) 10*6/uL Sodium (137-145) mmol/L Creatinine (0.66-1.25) mg/dL Glucose (74-99) mg/dL POC Glucose (mg/dL) 247 H (70-110) mg/dL Hemoglobin A1c (<=6.0) % Total Protein (6.3-8.2) g/dL Albumin (3.5-5.0) g/dL
[2025-02-01 12:11] VITALS: BP 112/76; PULSE 80; RESP 14; TEMP 98.2
--- NOTE | 2025-02-01 15:09 | P.HPIM ---
History of Present Illness 59-year-old male here with complaints of abdominal pain in the lower left lower abdominal quadrants. Patient had a CT of the abdomen with exception of possible. Bladder outlet obstruction for which urology evaluated.-Continue adding Flomax. Patient was also found to be hypomagnesemic with elevated blood sugar. Patient removed from [facility]. Not on any medications. Patient was started on insulin here with Lantus 10 units and sliding scale insulin patient hemoglobin A1c is 15. Patient does not have a PCP here. Patient was given Protonix as well for possibility of gastroesophageal reflux disease because of some epigastric abdominal pain as well. CT showed partial kidney blood. Serum creatinine is within normal limits. REVIEW OF SYSTEMS: All other systems are negative except those mentioned in the HPI PHYSICAL EXAMINATION: GENERAL: The patient is alert and oriented x3, not in any acute distress. Well developed, well nourished. HEENT: Pupils are round and equally reacting to light. EOMI. No scleral icterus. No conjunctival pallor. Normocephalic, atraumatic. No pharyngeal erythema. No thyromegaly. CARDIOVASCULAR: S1 and S2 present. No murmurs, rubs, or gallops. PULMONARY: Chest is clear to auscultation, no wheezing or crackles. ABDOMEN: Soft, nontender, nondistended, normoactive bowel sounds. No palpable organomegaly. MUSCULOSKELETAL: No joint swelling or deformity. EXTREMITIES: No cyanosis, clubbing, or pedal edema. NEUROLOGICAL: Gross neurological examination did not reveal any focal deficits. SKIN: No rashes. Assessment and plan --Abdominal pain epigastric area probably secondary to gastroesophageal DISEASE patient will be discharged on Protonix - Lower abdominal pain low possibility of bladder outlet obstruction as patient is urinating well and no residuals. Further management as per urology patient will be referred to urology as an outpatient - Type 2 diabetes mellitus uncontrolled elevated blood sugars patient was started on insulin patient will be given prescription for 10 units of Lantus along with sliding scale insulin patient will be referred to PCP. - Hyponatremia secondary to hyperglycemia Patient will be discharged today with above-mentioned plan. Past Medical History Past Medical History: Dementia, Diabetes Mellitus, Hypertension History of Any Multi-Drug Resistant Organisms: None Reported Past Surgical History: Tonsillectomy Past Anesthesia/Blood Transfusion Reactions: No Reported Reaction Past Psychological History: No Psychological Hx Reported Smoking Status: Current every day smoker Past Alcohol Use History: None Reported Past Drug Use History: None Reported Medications and Allergies Home Medications Medication Instructions Recorded Confirmed Type INSULIN LISPRO (humaLOG) [humaLOG] 1 injection SQ DIRECTED #10 ml 02/01/25 Rx Insulin Glargine (Lantus) [Lantus 10 unit SQ BID@0700,2100 #7 each 02/01/25 Rx Vial] Pantoprazole [Protonix] 40 mg PO AC-BRKFST #14 tab 02/01/25 Rx Allergies Allergy/AdvReac Type Severity Reaction Status Date / Time No Known Allergies Allergy Verified 01/31/25 09:10 Physical Exam Vitals: Vital Signs Temp Pulse Resp BP Pulse Ox 02/01/25 12:05 98.2 F 80 14 112/76 96 02/01/25 08:25 97.7 F 84 16 123/69 98 02/01/25 04:45 75 16 124/79 96 01/31/25 23:39 79 16 129/73 97 01/31/25 20:20 97.3 F L 80 16 134/80 99 01/31/25 15:58 97.3 F L 79 16 118/76 98 Intake and Output 02/01/25 02/01/25 02/01/25 06:59 14:59 22:59 Intake Total 360 Balance 360 Intake: Oral 360 Other: Voiding Method Urinal Urinal # Voids 1 0 Weight 67.6 kg Results CBC & Chem 7: 02/01/25 07:45 02/01/25 07:45 Labs: Abnormal Lab Results - Last 24 Hours (Table) 01/31/25 01/31/25 02/01/25 Range/Units 16:15 20:07 05:49 RBC (4.40-5.60) 10*6/uL Sodium (137-145) mmol/L Creatinine (0.66-1.25) mg/dL Glucose (74-99) mg/dL POC Glucose (mg/dL) 132 H 299 H 229 H (70-110) mg/dL Total Protein (6.3-8.2) g/dL Albumin (3.5-5.0) g/dL 02/01/25 02/01/25 02/01/25 Range/Units 07:45 07:45 11:20 RBC 4.31 L (4.40-5.60) 10*6/uL Sodium 132 L (137-145) mmol/L Creatinine 0.55 L (0.66-1.25) mg/dL Glucose 210 H (74-99) mg/dL POC Glucose (mg/dL) 247 H (70-110) mg/dL Total Protein 5.4 L (6.3-8.2) g/dL Albumin 3.2 L (3.5-5.0) g/dL Thrombosis Risk Factor Assmnt - Choose All That Apply Any of the Below Risk Factors Present?: No Other Risk Factors: Yes Each Risk Factor Represents 2 Points: Age 61-74 years Other congenital or acquired thrombophilia - If yes, enter type in comment: No Thrombosis Risk Factor Assessment Total Risk Factor Score: 2 Thrombosis Risk Factor Assessment Level: Low Risk
--- NOTE | 2025-02-01 15:10 | P.DS ---
Providers Date of admission: 01/30/25 22:19 Attending physician: Charles Kyle Consults: 01/31/25 14:12 Consult Physician Routine Consulting Provider: Nelson Gay Consult Reason/Comments: abd pain Do you want consulting provider notified?: Yes 01/31/25 16:01 Consult Physician Routine Consulting Provider: Peterson Manley Consult Reason/Comments: abnormal CT findings Do you want consulting provider notified?: Yes Primary care physician: Stated None Hospital Course: 59-year-old male here with complaints of abdominal pain in the lower left lower abdominal quadrants. Patient had a CT of the abdomen with exception of possible. Bladder outlet obstruction for which urology evaluated.-Continue adding Flomax. Patient was also found to be hypomagnesemic with elevated blood sugar. Patient removed from [facility]. Not on any medications. Patient was started on insulin here with Lantus 10 units and sliding scale insulin patient hemoglobin A1c is 15. Patient does not have a PCP here. Patient was given Protonix as well for possibility of gastroesophageal reflux disease because of some epigastric abdominal pain as well. CT showed partial kidney blood. Serum creatinine is within normal limits. REVIEW OF SYSTEMS: All other systems are negative except those mentioned in the HPI PHYSICAL EXAMINATION: GENERAL: The patient is alert and oriented x3, not in any acute distress. Well developed, well nourished. HEENT: Pupils are round and equally reacting to light. EOMI. No scleral icterus. No conjunctival pallor. Normocephalic, atraumatic. No pharyngeal erythema. No thyromegaly. CARDIOVASCULAR: S1 and S2 present. No murmurs, rubs, or gallops. PULMONARY: Chest is clear to auscultation, no wheezing or crackles. ABDOMEN: Soft, nontender, nondistended, normoactive bowel sounds. No palpable organomegaly. MUSCULOSKELETAL: No joint swelling or deformity. EXTREMITIES: No cyanosis, clubbing, or pedal edema. NEUROLOGICAL: Gross neurological examination did not reveal any focal deficits. SKIN: No rashes. Assessment and plan --Abdominal pain epigastric area probably secondary to gastroesophageal DISEASE patient will be discharged on Protonix - Lower abdominal pain low possibility of bladder outlet obstruction as patient is urinating well and no residuals. Further management as per urology patient will be referred to urology as an outpatient - Type 2 diabetes mellitus uncontrolled elevated blood sugars patient was started on insulin patient will be given prescription for 10 units of Lantus along with sliding scale insulin patient will be referred to PCP. - Hyponatremia secondary to hyperglycemia Patient will be discharged today with above-mentioned plan. Patient Condition at Discharge: Fair Plan - Discharge Summary Discharge Rx Participant: No New Discharge Prescriptions: New Insulin Glargine (Lantus) [Lantus Vial] 10 unit SQ BID@0700,2100 #7 each Pantoprazole [Protonix] 40 mg PO AC-BRKFST #14 tab INSULIN LISPRO (humaLOG) [humaLOG] 1 injection SQ DIRECTED #10 ml Discharge Medication List INSULIN LISPRO (humaLOG) [humaLOG] 1 injection SQ DIRECTED #10 ml 02/01/25 [Rx] Insulin Glargine (Lantus) [Lantus Vial] 10 unit SQ BID@0700,2100 #7 each 02/01/25 [Rx] Pantoprazole [Protonix] 40 mg PO AC-BRKFST #14 tab 02/01/25 [Rx] Follow up Appointment(s)/Referral(s): Ghulam Portillo MD [STAFF PHYSICIAN] - 1 Week [facility] [NON-STAFF] - 02/05/25 10:30 am Anil Santiago MD [STAFF PHYSICIAN] - 1 Week Activity/Diet/Wound Care/Special Instructions: Patient needs glucometer to manage insulin dependent diabetes mellitus. Patient should check his blood sugar 3x/day Discharge/Stand Alone Forms: Who Do I Call?, Community Resources Discharge Disposition: HOME SELF-CARE
== END 2025-02-01 17:32 | disposition home or self-care (01) | DRG 638 ==
LOC: EC 19:38 → 3SCARD 22:19
PROVIDERS: ADMIT Hospitalist; ATTEND Hospitalist
DX: E11.65 Type 2 diabetes mellitus with hyperglycemia (principal); E87.1 Hypo-osmolality and hyponatremia; E87.29 Other acidosis; F03.90 Unspecified dementia, unspecified severity, without behavioral disturbance, psychotic disturbance, mood disturbance, and anxiety; I10 Essential (primary) hypertension; N13.8 Other obstructive and reflux uropathy; N13.30 Unspecified hydronephrosis; Q63.1 Lobulated, fused and horseshoe kidney; N32.0 Bladder-neck obstruction; K21.9 Gastro-esophageal reflux disease without esophagitis; N40.1 Benign prostatic hyperplasia with lower urinary tract symptoms; E83.42 Hypomagnesemia; E87.5 Hyperkalemia; F17.200 Nicotine dependence, unspecified, uncomplicated; I25.2 Old myocardial infarction; R32 Unspecified urinary incontinence; Z79.84 Long term (current) use of oral hypoglycemic drugs; Z91.199 Patient's noncompliance with other medical treatment and regimen due to unspecified reason; Z71.3 Dietary counseling and surveillance
CPT/HCPCS: 36415; 74176; 80048; 80053; 81003; 82009; 82803; 83036; 83605; 83690; 84132; 84153; 85025; 93005; 96360; 96361; 99291

== ENCOUNTER 2025-02-01 21:37 | Emergency (ER) | payer MEDICARE ==
[2025-02-01 21:44] VITALS: RESP 18
[2025-02-01 21:44] LABS: Glucose,Whole Blood 308 mg/dL (70-110)
[2025-02-01] MEDS: INSULIN LISPRO (HumaLOG) 100 UNIT/ML 10 mL VL SQ ONE (22:46)
--- NOTE | 2025-02-01 23:01 | ED ---
General Adult HPI - General Chief complaint: Recheck/Abnormal Lab/Rx Stated complaint: hyperglycemia Time Seen by Provider: 02/01/25 22:25 Source: patient Mode of arrival: ambulatory Limitations: no limitations - History of Present Illness Initial comments: 59-year-old male who has come into the ER because he does not have his insulin. Patient was discharged from our facility earlier today. He is present with a friend who states that he was not told where his insulin was sent. He checked his blood sugar at home and it was high and he had no insulin to give himself so they came here to the ER. He is having no symptoms at this time. - Related Data Previous Rx's Medication Instructions Recorded INSULIN LISPRO (humaLOG) [humaLOG] 1 injection SQ DIRECTED #10 ml 02/01/25 Insulin Glargine (Lantus) [Lantus 10 unit SQ BID@0700,2100 #7 each 02/01/25 Vial] Pantoprazole [Protonix] 40 mg PO AC-BRKFST #14 tab 02/01/25 Allergies Allergy/AdvReac Type Severity Reaction Status Date / Time No Known Allergies Allergy Verified 02/01/25 21:44 Review of Systems ROS Statement: Those systems with pertinent positive or pertinent negative responses have been documented in the HPI. ROS Other: All systems not noted in ROS Statement are negative. Past Medical History Past Medical History: Dementia, Diabetes Mellitus, Hypertension History of Any Multi-Drug Resistant Organisms: None Reported Past Surgical History: Tonsillectomy Past Anesthesia/Blood Transfusion Reactions: No Reported Reaction Past Psychological History: No Psychological Hx Reported Smoking Status: Current every day smoker Past Alcohol Use History: None Reported Past Drug Use History: None Reported General Exam Limitations: no limitations General appearance: alert, in no apparent distress Head exam: Present: atraumatic, normocephalic, normal inspection Eye exam: Present: normal appearance, EOMI Neck exam: Present: normal inspection. Absent: meningismus Respiratory exam: Absent: respiratory distress Cardiovascular Exam: Present: regular rate Neurological exam: Present: alert, oriented X3 Psychiatric exam: Present: normal affect, normal mood Skin exam: Present: warm, dry, normal color Course Vital Signs 02/01/25 02/01/25 21:39 23:32 Temperature 98.0 F 97.5 F L Pulse Rate 88 75 Respiratory 18 18 Rate Blood Pressure 140/83 135/82 O2 Sat by Pulse 100 98 Oximetry Medical Decision Making - Medical Decision Making Was pt. sent in by a medical professional or institution (MARQUISE Mobley, RN [facility], urgent care, hospital, or retirement...) When possible be specific @ -No Did you speak to anyone other than the patient for history (EMS, parent, family, police, friend...)? What history was obtained from this source @ -No Did you review nursing and triage notes (agree or disagree)? Why? @ -I reviewed and agree with nursing and triage notes Were old charts reviewed (outside hosp., previous admission, EMS record, old EKG, old radiological studies, urgent care reports/EKG's, retirement records)? Report findings @ -No old charts were reviewed Differential Diagnosis (chest pain, altered mental status, abdominal pain women, abdominal pain men, vaginal bleeding, weakness, fever, dyspnea, syncope, headache, dizziness, GI bleed, back pain, seizure, CVA, palpatations, mental health, musculoskeletal)? @ -Not applicable EKG interpreted by me (3pts min.). @ -As above X-rays interpreted by me (1pt min.). @ -None done CT interpreted by me (1pt min.). @ -None done U/S interpreted by me (1pt. min.). @ -None done What testing was considered but not performed or refused? (CT, X-rays, U/S, labs)? Why? @ -None What meds were considered but not given or refused? Why? @ -None Did you discuss the management of the patient with other professionals (professionals i.e. MARQUISE Mobley, RN [facility], lab, RT, psych nurse, social services, zigzag stitcher, teacher, correction officer penitentiary, manager of case)? Give summary @ -No Was smoking cessation discussed for >3mins.? @ -No Was critical care preformed (if so, how long)? @ -No Were there social determinants of health that impacted care today? How? (Homelessness, low income, unemployed, alcoholism, drug addiction, transportation, low edu. Level, literacy, decrease access to med. care, prison, rehab)? @ -No Was there de-escalation of care discussed even if they declined (Discuss DNR or withdrawal of care, Hospice)? DNR status @ -No What co-morbidities impacted this encounter? (DM, HTN, Smoking, COPD, CAD, Cancer, CVA, ARF, Chemo, Hep., AIDS, mental health diagnosis, sleep apnea, morbid obesity)? @ -None Was patient admitted / discharged? Hospital course, mention meds given and route, prescriptions, significant lab abnormalities, going to OR and other pertinent info. @ -59-year-old male senting to the ER due to not having insulin at home. Patient was discharged from the ER today and states he was not told where his insulin was sent. His blood sugar was 400 at home so he came to the ER for insulin. Patient is informed of the pharmacy that his insulin was sent to. Blood sugars 308 here. He is having no symptoms at this time. He is given 6 units of Humalog. client support representative medications in the morning and take them as prescribed. Follow-up with PCP. Report back to ER with any new or worsening symptoms. Discussed return parameters and answered all questions. Patient conveyed verbal understanding and agreed to the plan. I discussed this case in detail with my attending Dr. Hairston Undiagnosed new problem with uncertain prognosis? @ -No Drug Therapy requiring intensive monitoring for toxicity (Heparin, Nitro, Insulin, Cardizem)? @ -No Were any procedures done? @ -No Diagnosis/symptom? @ -hyperglycemia Acute, or Chronic, or Acute on Chronic? @ -Acute Uncomplicated (without systemic symptoms) or Complicated (systemic symptoms)? @ -Uncomplicated Side effects of treatment? @ -No Exacerbation, Progression, or Severe Exacerbation? @ -No Poses a threat to life or bodily function? How? (Chest pain, [place], [place], pneumonia, PE, COPD, DKA, ARF, appy, cholecystitis, CVA, Diverticulitis, Homicidal, Suicidal, threat to staff... and all critical care pts) @ -Unlikely - Lab Data Lab Results 02/01/25 Range/Units 21:43 POC Glucose (mg/dL) 308 H (70-110) mg/dL POC Glu Division Supervisor ID Ronnie Kramer Disposition Clinical Impression: Hyperglycemia Disposition: HOME SELF-CARE Condition: Good Instructions (If sedation given, give patient instructions): Diabetic Hyperglycemia (ED) Additional Instructions: Follow-up with your PCP. Report back to ER with any new or worsening symptoms. Make sure to cotton picking machine operator your insulin in the morning Is patient prescribed a controlled substance at d/c from ED?: No Referrals: None,Stated [Primary Care Provider] - 1-2 days Ghulam Portillo MD [STAFF PHYSICIAN] - 1-2 days Time of Disposition: 23:00
[2025-02-01 23:33] VITALS: BP 135/82; PULSE 75; TEMP 97.5
== END 2025-02-01 23:33 | disposition home or self-care (01) ==
LOC: EC 21:37
DX: E11.65 Type 2 diabetes mellitus with hyperglycemia (principal); F17.200 Nicotine dependence, unspecified, uncomplicated; Z79.4 Long term (current) use of insulin
CPT/HCPCS: 36415; 99284

== ENCOUNTER 2025-02-10 09:01 | Emergency (ER) | payer MEDICARE ==
[2025-02-10 09:08] LABS: Glucose,Whole Blood 350 mg/dL (70-110)
[2025-02-10 09:32] LABS: Basophils # (A) 0.03 10*3/uL (0.00-0.10); Basophils % (A) 0.3 %; Eosinophils # (A) 0.11 10*3/uL (0.04-0.35); Eosinophils % (A) 1.2 %; HCT 46.4 % (39.6-50.0); HGB 15.9 g/dL (13.0-17.0); Lymphocytes # (A) 1.89 10*3/uL (0.90-5.00); Lymphocytes % (A) 21.4 %; MCH 32.2 pg (27.0-32.0); MCHC 34.3 g/dL (32.0-37.0); MCV 93.9 fL (80.0-97.0); Mean Platelet Volume 10.7 fL (9.5-12.2); Monocytes # (A) 0.46 10*3/uL (0.20-1.00); Monocytes % (A) 5.2 %; Neutrophils # (A) 6.32 10*3/uL (1.80-7.70); Neutrophils % (A) 71.6 %; Platelet Count 282 10*3/uL (140-440); RBC 4.94 10*6/uL (4.40-5.60); RDW 12.3 % (11.5-14.5); WBC 8.84 10*3/uL (4.50-10.00)
[2025-02-10 09:45] LABS: ALT 22 U/L (4-49); AST 17 U/L (17-59); African American GFR (CKD) >90 (>60 ml/min/1.73 sqM); Albumin 4.4 g/dL (3.5-5.0); Alkaline Phosphatase 78 U/L (38-126); Anion Gap 10 mmol/L; Blood Urea Nitrogen 21 mg/dL (9-20); Calcium 10.3 mg/dL (8.4-10.2); Carbon Dioxide 25 mmol/L (22-30); Chloride 101 mmol/L (98-107); Glucose 376 mg/dL (74-99); Non-African American GFR(CKD) >90 (>60 ml/min/1.73 sqM); Potassium 4.2 mmol/L (3.5-5.1); Sodium 136 mmol/L (137-145); Total Bilirubin 0.7 mg/dL (0.2-1.3); Total Protein 7.1 g/dL (6.3-8.2)
--- NOTE | 2025-02-10 10:29 | ED ---
General Adult HPI - General Chief complaint: Recheck/Abnormal Lab/Rx Stated complaint: ABN Labs Time Seen by Provider: 02/10/25 09:42 Source: patient, family, RN notes reviewed Mode of arrival: ambulatory Limitations: no limitations - History of Present Illness Initial comments: 59-year-old male presents to the emergency department for evaluation of elevated blood glucose. Patient reports that he is a known diabetic and is not currently taking his medications. He states that he was admitted recently for his blood glucose. He has not been taking his medications as prescribed. He states that he has been feeling lightheaded and believes that his blood sugar is high. He reports feeling lightheaded when he has high blood sugar. - Related Data Previous Rx's Medication Instructions Recorded Pantoprazole [Protonix] 40 mg PO AC-BRKFST #14 tab 02/01/25 Blood Sugar Diagnostic [Glucose 1 each ACHS #100 strip 02/10/25 Test Strip] INSULIN LISPRO (humaLOG) [humaLOG] 1 injection SQ DIRECTED #10 ml 02/10/25 Insulin Glargine (Lantus) [Lantus 10 unit SQ BID@0700,2100 #7 each 02/10/25 Vial] Allergies Allergy/AdvReac Type Severity Reaction Status Date / Time No Known Allergies Allergy Verified 02/10/25 09:09 Review of Systems ROS Statement: Those systems with pertinent positive or pertinent negative responses have been documented in the HPI. ROS Other: All systems not noted in ROS Statement are negative. Past Medical History Past Medical History: Dementia, Diabetes Mellitus, Hypertension History of Any Multi-Drug Resistant Organisms: None Reported Past Surgical History: Tonsillectomy Past Anesthesia/Blood Transfusion Reactions: No Reported Reaction Past Psychological History: No Psychological Hx Reported Smoking Status: Current every day smoker Past Alcohol Use History: None Reported Past Drug Use History: None Reported General Exam Limitations: no limitations General appearance: alert, in no apparent distress Head exam: Present: atraumatic, normocephalic, normal inspection Eye exam: Present: normal appearance, PERRL, EOMI. Absent: scleral icterus, conjunctival injection, periorbital swelling ENT exam: Present: normal exam, mucous membranes moist Neck exam: Present: normal inspection. Absent: tenderness, meningismus, lymphadenopathy Respiratory exam: Present: normal lung sounds bilaterally. Absent: respiratory distress, wheezes, rales, rhonchi, stridor Cardiovascular Exam: Present: regular rate, normal rhythm, normal heart sounds. Absent: systolic murmur, diastolic murmur, rubs, gallop, clicks GI/Abdominal exam: Present: soft, normal bowel sounds. Absent: distended, tenderness, guarding, rebound, rigid Extremities exam: Present: normal inspection, full ROM, normal capillary refill. Absent: tenderness, pedal edema, joint swelling, calf tenderness Back exam: Present: normal inspection Neurological exam: Present: alert, oriented X3, CN II-XII intact Psychiatric exam: Present: normal affect, normal mood Skin exam: Present: warm, dry, intact, normal color. Absent: rash Course Vital Signs 02/10/25 02/10/25 09:03 11:27 Temperature 98.1 F Pulse Rate 90 77 Respiratory 18 16 Rate Blood Pressure 138/75 129/89 O2 Sat by Pulse 99 100 Oximetry Medical Decision Making - Medical Decision Making Was pt. sent in by a medical professional or institution (, PA, DOPSTER, urgent care, hospital, or care home...) When possible be specific @ -[No] Did you speak to anyone other than the patient for history (EMS, parent, family, police, friend...)? What history was obtained from this source @ -[No] Did you review nursing and triage notes (agree or disagree)? Why? @ -[I reviewed and agree with nursing and triage notes] Were old charts reviewed (outside hosp., previous admission, EMS record, old EKG, old radiological studies, urgent care reports/EKG's, care home records)? Report findings @ -[No old charts were reviewed] Differential Diagnosis (chest pain, altered mental status, abdominal pain women, abdominal pain men, vaginal bleeding, weakness, fever, dyspnea, syncope, headache, dizziness, GI bleed, back pain, seizure, CVA, palpatations, mental health, musculoskeletal)? @ -[not applicable] EKG interpreted by me (3pts min.). @ -[As above] X-rays interpreted by me (1pt min.). @ -[None done] CT interpreted by me (1pt min.). @ -[None done] U/S interpreted by me (1pt. min.). @ -[None done] What testing was considered but not performed or refused? (CT, X-rays, U/S, labs)? Why? @ -[None] What meds were considered but not given or refused? Why? @ -[None] Did you discuss the management of the patient with other professionals (professionals i.e. , PA, DOPSTER, lab, RT, psych nurse, social services designee, ceo and co founder, teacher, traffic division commanding officer, case packer and sealer)? Give summary @ -[No] Was smoking cessation discussed for >3mins.? @ -[No] Was critical care preformed (if so, how long)? @ -[No] Were there social determinants of health that impacted care today? How? (Homelessness, low income, unemployed, alcoholism, drug addiction, trans portation, low edu. Level, literacy, decrease access to med. care, senior living, rehab)? @ -[No] Was there de-escalation of care discussed even if they declined (Discuss DNR or withdrawal of care, Hospice)? DNR status @ -[No] What co-morbidities impacted this encounter? (DM, HTN, Smoking, COPD, CAD, Cance r, CVA, ARF, Chemo, Hep., AIDS, mental health diagnosis, sleep apnea, morbid obesity)? @ -[None] Was patient admitted / discharged? Hospital course, mention meds given and route, prescriptions, significant lab abnormalities, going to OR and other pertinent info. @ -[hospital course] Undiagnosed new problem with uncertain prognosis? @ -[No] Drug Therapy requiring intensive monitoring for toxicity (Heparin, Nitro, Insulin, Cardizem)? @ -[No] Were any procedures done? @ -[No] Diagnosis/symptom? @ -[default] Acute, or Chronic, or Acute on Chronic? @ -[default] Uncomplicated (without systemic symptoms) or Complicated (systemic symptoms)? @ -[default] Side effects of treatment? @ -[No] Exacerbation, Progression, or Severe Exacerbation? @ -[No] Poses a threat to life or bodily function? How? (Chest pain, [place], [place], pneumonia, PE, COPD, DKA, ARF, appy, cholecystitis, CVA, Diverticulitis, Homicidal, Suicidal, threat to staff... and all critical care pts) @ -[No] - Lab Data Result diagrams: 02/10/25 09:20 02/10/25 09:20 Lab Results 02/10/25 02/10/25 02/10/25 Range/Units 09:07 09:20 09:20 WBC 8.84 (4.50-10.00) 10*3/uL RBC 4.94 (4.40-5.60) 10*6/uL Hgb 15.9 (13.0-17.0) g/dL Hct 46.4 (39.6-50.0) % MCV 93.9 (80.0-97.0) fL MCH 32.2 H (27.0-32.0) pg MCHC 34.3 (32.0-37.0) g/dL Plt Count 282 (140-440) 10*3/uL MPV 10.7 (9.5-12.2) fL Immature Gran % (Auto) 0.3 % Neutrophils % 71.6 % Lymphocytes % 21.4 % Monocytes % 5.2 % Eosinophils % 1.2 % Basophils % 0.3 % Immature Gran # 0.03 (0.00-0.04) 10*3/uL Neutrophils # 6.32 (1.80-7.70) 10*3/uL Lymphocytes # 1.89 (0.90-5.00) 10*3/uL Monocytes # 0.46 (0.20-1.00) 10*3/uL Eosinophils # 0.11 (0.04-0.35) 10*3/uL Basophils # 0.03 (0.00-0.10) 10*3/uL Sodium 136 L (137-145) mmol/L Potassium 4.2 (3.5-5.1) mmol/L Chloride 101 (98-107) mmol/L Carbon Dioxide 25 (22-30) mmol/L Anion Gap 10 mmol/L BUN 21 H (9-20) mg/dL Creatinine 0.74 (0.66-1.25) mg/dL Est GFR (CKD-EPI)AfAm >90 (>60 ml/min/1.73 sqM) Est GFR (CKD-EPI)NonAf >90 (>60 ml/min/1.73 sqM) Glucose 376 H (74-99) mg/dL POC Glucose (mg/dL) 350 H (70-110) mg/dL POC Glu Building Guard Deputy Sheriff ID Roselia Stratton Calcium 10.3 H (8.4-10.2) mg/dL Total Bilirubin 0.7 (0.2-1.3) mg/dL AST 17 (17-59) U/L ALT 22 (4-49) U/L Alkaline Phosphatase 78 (38-126) U/L Total Protein 7.1 (6.3-8.2) g/dL Albumin 4.4 (3.5-5.0) g/dL 02/10/25 02/10/25 Range/Units 11:22 15:06 WBC (4.50-10.00) 10*3/uL RBC (4.40-5.60) 10*6/uL Hgb (13.0-17.0) g/dL Hct (39.6-50.0) % MCV (80.0-97.0) fL MCH (27.0-32.0) pg MCHC (32.0-37.0) g/dL Plt Count (140-440) 10*3/uL MPV (9.5-12.2) fL Immature Gran % (Auto) % Neutrophils % % Lymphocytes % % Monocytes % % Eosinophils % % Basophils % % Immature Gran # (0.00-0.04) 10*3/uL Neutrophils # (1.80-7.70) 10*3/uL Lymphocytes # (0.90-5.00) 10*3/uL Monocytes # (0.20-1.00) 10*3/uL Eosinophils # (0.04-0.35) 10*3/uL Basophils # (0.00-0.10) 10*3/uL Sodium (137-145) mmol/L Potassium (3.5-5.1) mmol/L Chloride (98-107) mmol/L Carbon Dioxide (22-30) mmol/L Anion Gap mmol/L BUN (9-20) mg/dL Creatinine (0.66-1.25) mg/dL Est GFR (CKD-EPI)AfAm (>60 ml/min/1.73 sqM) Est GFR (CKD-EPI)NonAf (>60 ml/min/1.73 sqM) Glucose (74-99) mg/dL POC Glucose (mg/dL) 298 H 136 H (70-110) mg/dL POC Glu Building Guard Deputy Sheriff ID Renan Hearn Renan Nadiya Calcium (8.4-10.2) mg/dL Total Bilirubin (0.2-1.3) mg/dL AST (17-59) U/L ALT (4-49) U/L Alkaline Phosphatase (38-126) U/L Total Protein (6.3-8.2) g/dL Albumin (3.5-5.0) g/dL Disposition Clinical Impression: Diabetes mellitus Disposition: HOME SELF-CARE Condition: Stable Instructions (If sedation given, give patient instructions): Diabetic Hyperglycemia (ED) Additional Instructions: Please take your medication as you are prescribed even if you are feeling better. Return to the emergency department for new or worsening symptoms. Prescriptions: Blood Sugar Diagnostic [Glucose Test Strip] 1 each [facility] #100 strip INSULIN LISPRO (humaLOG) [humaLOG] 1 injection SQ DIRECTED #10 ml Insulin Glargine (Lantus) [Lantus Vial] 10 unit SQ BID@0700,2100 #7 each Is patient prescribed a controlled substance at d/c from ED?: No Referrals: None,Stated [Primary Care Provider] - 1-2 days
[2025-02-10] MEDS: SODIUM CHLORIDE 0.9% 1,000 ML IV ONE (10:34)
[2025-02-10] MEDS: INSULIN LISPRO (HumaLOG) 100 UNIT/ML 10 mL VL SQ ONE (10:35)
[2025-02-10 11:24] LABS: Glucose,Whole Blood 298 mg/dL (70-110)
[2025-02-10 11:28] VITALS: PULSE 77
[2025-02-10 15:07] LABS: Glucose,Whole Blood 136 mg/dL (70-110)
[2025-02-10 16:00] VITALS: BP 128/61; RESP 20; TEMP 98.6
== END 2025-02-10 16:00 | disposition home or self-care (01) ==
LOC: EC 09:01
DX: E11.9 Type 2 diabetes mellitus without complications (principal); F17.200 Nicotine dependence, unspecified, uncomplicated
CPT/HCPCS: 36415; 80053; 85025; 93005; 96360; 99285

== ENCOUNTER 2025-02-19 20:58 | Emergency (ER) | payer MEDICARE ==
[2025-02-19 21:07] VITALS: RESP 18
[2025-02-19 21:08] LABS: Glucose,Whole Blood 461 mg/dL (70-110)
--- NOTE | 2025-02-19 22:26 | ED ---
General Adult HPI - General Chief complaint: Altered Mental Status Stated complaint: Hyperglycemia Time Seen by Provider: 02/19/25 22:23 Source: patient, RN notes reviewed Mode of arrival: ambulatory Limitations: no limitations - History of Present Illness Initial comments: 59-year-old male presenting for hyperglycemia. States his blood sugar has been in the 500s all day and he cannot get it down despite taking insulin. States he was recently diagnosed with diabetes earlier this month. Patient does not take insulin as prescribed and does not check his blood sugar regularly. His friend is the one who checks patient's blood sugar and administers the insulin. Patient states he is asymptomatic. Denies nausea, vomiting, abdominal pain, chest pain. Denies cough, congestion, urinary symptoms. 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 - Related Data Previous Rx's Medication Instructions Recorded Pantoprazole [Protonix] 40 mg PO AC-BRKFST #14 tab 02/01/25 Blood Sugar Diagnostic [Glucose 1 each ACHS #100 strip 02/10/25 Test Strip] INSULIN LISPRO (humaLOG) [humaLOG] 1 injection SQ DIRECTED #10 ml 02/10/25 Insulin Glargine (Lantus) [Lantus 10 unit SQ BID@0700,2100 #7 each 02/10/25 Vial] Allergies Allergy/AdvReac Type Severity Reaction Status Date / Time No Known Allergies Allergy Verified 02/19/25 21:04 Review of Systems ROS Statement: Those systems with pertinent positive or pertinent negative responses have been documented in the HPI. ROS Other: All systems not noted in ROS Statement are negative. Past Medical History Past Medical History: Dementia, Diabetes Mellitus, Hypertension Additional Past Medical History / Comment(s): neuropathy, sciatica History of Any Multi-Drug Resistant Organisms: None Reported Past Surgical History: Tonsillectomy Past Anesthesia/Blood Transfusion Reactions: No Reported Reaction Past Psychological History: No Psychological Hx Reported Smoking Status: Current every day smoker Past Alcohol Use History: Occasional Past Drug Use History: None Reported General Exam Limitations: no limitations General appearance: alert, in no apparent distress Head exam: Present: atraumatic, normocephalic, normal inspection Eye exam: Present: normal appearance, PERRL, EOMI. Absent: scleral icterus, conjunctival injection, periorbital swelling Respiratory exam: Present: normal lung sounds bilaterally. Absent: respiratory distress, wheezes, rales, rhonchi, stridor Cardiovascular Exam: Present: regular rate, normal rhythm, normal heart sounds. Absent: systolic murmur, diastolic murmur, rubs, gallop, clicks GI/Abdominal exam: Present: soft, normal bowel sounds. Absent: distended, tenderness, guarding, rebound, rigid Neurological exam: Present: alert, oriented X3 Psychiatric exam: Present: normal affect, normal mood Skin exam: Present: warm, dry, intact, normal color. Absent: rash Course Vital Signs 02/19/25 02/20/25 21:04 00:50 Temperature 98.0 F Pulse Rate 83 82 Respiratory 18 18 Rate Blood Pressure 156/80 169/84 O2 Sat by Pulse 98 100 Oximetry EKG Findings - EKG Results: EKG: interpreted by MISTI (EKG reveals normal sinus rhythm with right bundle branch block unchanged from previous EKG. Ventricular rate 75 bpm, UT interval 137, QRS duration 155, QT/QTc 420/449) Medical Decision Making - Medical Decision Making Was pt. sent in by a medical professional or institution (, PA, CHOCOLATE MAKER, urgent care, hospital, or detention...) When possible be specific @ -No Did you speak to anyone other than the patient for history (EMS, parent, family, police, friend...)? What history was obtained from this source @ -No Did you review nursing and triage notes (agree or disagree)? Why? @ -I reviewed and agree with nursing and triage notes Were old charts reviewed (outside hosp., previous admission, EMS record, old EKG, old radiological studies, urgent care reports/EKG's, detention records)? Report findings @ -No old charts were reviewed Differential Diagnosis (chest pain, altered mental status, abdominal pain women, abdominal pain men, vaginal bleeding, weakness, fever, dyspnea, syncope, headache, dizziness, GI bleed, back pain, seizure, CVA, palpatations, mental he alth, musculoskeletal)? @ -Hyperglycemia, DKA, HHS EKG interpreted by me (3pts min.). @ -As above X-rays interpreted by me (1pt min.). @ -None done CT interpreted by me (1pt min.). @ -None done U/S interpreted by me (1pt. min.). @ -None done What testing was considered but not performed or refused? (CT, X-rays, U/S, labs)? Why? @ -None What meds were considered but not given or refused? Why? @ -None Did you discuss the management of the patient with other professionals (professionals i.e. , PA, CHOCOLATE MAKER, lab, RT, psych nurse, social work program coordinator, search engine marketing specialist, teacher, chief clinical officer, disease case manager rn)? Give summary @ -No Was smoking cessation discussed for >3mins.? @ -No Was critical care preformed (if so, how long)? @ -No Were there social determinants of health that impacted care today? How? (Homelessness, low income, unemployed, alcoholism, drug addiction, transportation, low edu. Level, literacy, decrease access to med. care, snf, rehab)? @ -No Was there de-escalation of care discussed even if they declined (Discuss DNR or withdrawal of care, Hospice)? DNR status @ -No What co-morbidities impacted this encounter? (DM, HTN, Smoking, COPD, CAD, Cancer, CVA, ARF, Chemo, Hep., AIDS, mental health diagnosis, sleep apnea, morbid obesity)? @ -None Was patient admitted / discharged? Hospital course, mention meds given and route, prescriptions, significant lab abnormalities, going to OR and other p ertinent info. @ - discharge. 59-year-old male with history of diabetes presenting for hyperglycemia. He is asymptomatic. Vital signs within acceptable limits. He is well-appearing. Initial Accu-Chek 461. Patient was provided with IV fluid bolus. Lab work remarkable for negative acetone, normal potassium 4.5, [id number], white blood cell count 6. Patient is provided with an additional IV fluid bolus and dose of IV insulin. Upon reevaluation blood glucose is 209. Given patient is not in DKA and blood glucose is controlled, patient can be safely discharged home with close outpatient follow-up and strict return precautions. Case was discussed with my ED attending Dr. Hairston. Undiagnosed new problem with uncertain prognosis? @ -No Drug Therapy requiring intensive monitoring for toxicity (Heparin, Nitro, Insulin, Cardizem)? @ -No Were any procedures done? @ -No Diagnosis/symptom? @ -Diabetic hyperglycemia Acute, or Chronic, or Acute on Chronic? @ -Acute Uncomplicated (without systemic symptoms) or Complicated (systemic symptoms)? @ -Uncomplicated Side effects of treatment? @ -No Exacerbation, Progression, or Severe Exacerbation? @ -No Poses a threat to life or bodily function? How? (Chest pain, [place], [place], pneumonia, PE, COPD, DKA, ARF, appy, cholecystitis, CVA, Diverticulitis, Homicidal, Suicidal, threat to staff... and all critical care pts) @ -No - Lab Data Result diagrams: 02/19/25 22:18 02/19/25 22:18 Lab Results 02/19/25 02/19/25 02/19/25 Range/Units 21:07 22:18 22:18 WBC 6.74 (4.50-10.00) 10*3/uL RBC 4.78 (4.40-5.60) 10*6/uL Hgb 15.2 (13.0-17.0) g/dL Hct 45.2 (39.6-50.0) % MCV 94.6 (80.0-97.0) fL MCH 31.8 (27.0-32.0) pg MCHC 33.6 (32.0-37.0) g/dL Plt Count 279 (140-440) 10*3/uL MPV 10.8 (9.5-12.2) fL Immature Gran % (Auto) 0.3 % Neutrophils % 57.1 % Lymphocytes % 34.3 % Monocytes % 5.6 % Eosinophils % 2.1 % Basophils % 0.6 % Immature Gran # 0.02 (0.00-0.04) 10*3/uL Neutrophils # 3.85 (1.80-7.70) 10*3/uL Lymphocytes # 2.31 (0.90-5.00) 10*3/uL Monocytes # 0.38 (0.20-1.00) 10*3/uL Eosinophils # 0.14 (0.04-0.35) 10*3/uL Basophils # 0.04 (0.00-0.10) 10*3/uL VBG pH (7.31-7.41) VBG pCO2 (37-51) mmHg VBG HCO3 (24-28) mmol/L Sodium 133 L (137-145) mmol/L Potassium 4.5 (3.5-5.1) mmol/L Chloride 99 (98-107) mmol/L Carbon Dioxide 28 (22-30) mmol/L Anion Gap 6 mmol/L BUN 15 (9-20) mg/dL Creatinine 0.71 (0.66-1.25) mg/dL Est GFR (CKD-EPI)AfAm >90 (>60 ml/min/1.73 sqM) Est GFR (CKD-EPI)NonAf >90 (>60 ml/min/1.73 sqM) Glucose 456 H (74-99) mg/dL POC Glucose (mg/dL) 461 H (70-110) mg/dL POC Glu Kennel Worker ID Emiliano Jaramillo Plasma Lactic Acid [place] (0.7-2.0) mmol/L Calcium 10.0 (8.4-10.2) mg/dL Phosphorus 3.5 (2.5-4.5) mg/dL Magnesium 2.0 (1.6-2.3) mg/dL Total Bilirubin 0.3 (0.2-1.3) mg/dL AST 16 L (17-59) U/L ALT 19 (4-49) U/L Alkaline Phosphatase 68 (38-126) U/L Total Protein 6.2 L (6.3-8.2) g/dL Albumin 3.8 (3.5-5.0) g/dL Urine Color Urine Appearance (Clear) Urine pH (5.0-8.0) Ur Specific [place] (1.001-1.035) Urine Protein (Negative) Urine Glucose (UA) (Negative) Urine Ketones (Negative) Urine Blood (Negative) Urine Nitrite (Negative) Urine Bilirubin (Negative) Urine Urobilinogen (<2.0) mg/dL Ur Leukocyte Esterase (Negative) Acetone, Qual Negative (Negative) 02/19/25 02/19/25 02/19/25 Range/Units 22:18 22:42 23:14 WBC (4.50-10.00) 10*3/uL RBC (4.40-5.60) 10*6/uL Hgb (13.0-17.0) g/dL Hct (39.6-50.0) % MCV (80.0-97.0) fL MCH (27.0-32.0) pg MCHC (32.0-37.0) g/dL Plt Count (140-440) 10*3/uL MPV (9.5-12.2) fL Immature Gran % (Auto) % Neutrophils % % Lymphocytes % % Monocytes % % Eosinophils % % Basophils % % Immature Gran # (0.00-0.04) 10*3/uL Neutrophils # (1.80-7.70) 10*3/uL Lymphocytes # (0.90-5.00) 10*3/uL Monocytes # (0.20-1.00) 10*3/uL Eosinophils # (0.04-0.35) 10*3/uL Basophils # (0.00-0.10) 10*3/uL VBG pH 7.39 (7.31-7.41) VBG pCO2 47 (37-51) mmHg VBG HCO3 28 (24-28) mmol/L Sodium (137-145) mmol/L Potassium (3.5-5.1) mmol/L Chloride (98-107) mmol/L Carbon Dioxide (22-30) mmol/L Anion Gap mmol/L BUN (9-20) mg/dL Creatinine (0.66-1.25) mg/dL Est GFR (CKD-EPI)AfAm (>60 ml/min/1.73 sqM) Est GFR (CKD-EPI)NonAf (>60 ml/min/1.73 sqM) Glucose (74-99) mg/dL POC Glucose (mg/dL) (70-110) mg/dL POC Glu Kennel Worker ID Plasma Lactic Acid [place] 1.9 (0.7-2.0) mmol/L Calcium (8.4-10.2) mg/dL Phosphorus (2.5-4.5) mg/dL Magnesium (1.6-2.3) mg/dL Total Bilirubin (0.2-1.3) mg/dL AST (17-59) U/L ALT (4-49) U/L Alkaline Phosphatase (38-126) U/L Total Protein (6.3-8.2) g/dL Albumin (3.5-5.0) g/dL Urine Color Colorless Urine Appearance Clear (Clear) Urine pH 7.0 (5.0-8.0) Ur Specific [place] 1.027 (1.001-1.035) Urine Protein Negative (Negative) Urine Glucose (UA) 4+ H (Negative) Urine Ketones Negative (Negative) Urine Blood Negative (Negative) Urine Nitrite Negative (Negative) Urine Bilirubin Negative (Negative) Urine Urobilinogen <2.0 (<2.0) mg/dL Ur Leukocyte Esterase Negative (Negative) Acetone, Qual (Negative) 02/20/25 Range/Units 00:43 WBC (4.50-10.00) 10*3/uL RBC (4.40-5.60) 10*6/uL Hgb (13.0-17.0) g/dL Hct (39.6-50.0) % MCV (80.0-97.0) fL MCH (27.0-32.0) pg MCHC (32.0-37.0) g/dL Plt Count (140-440) 10*3/uL MPV (9.5-12.2) fL Immature Gran % (Auto) % Neutrophils % % Lymphocytes % % Monocytes % % Eosinophils % % Basophils % % Immature Gran # (0.00-0.04) 10*3/uL Neutrophils # (1.80-7.70) 10*3/uL Lymphocytes # (0.90-5.00) 10*3/uL Monocytes # (0.20-1.00) 10*3/uL Eosinophils # (0.04-0.35) 10*3/uL Basophils # (0.00-0.10) 10*3/uL VBG pH (7.31-7.41) VBG pCO2 (37-51) mmHg VBG HCO3 (24-28) mmol/L Sodium (137-145) mmol/L Potassium (3.5-5.1) mmol/L Chloride (98-107) mmol/L Carbon Dioxide (22-30) mmol/L Anion Gap mmol/L BUN (9-20) mg/dL Creatinine (0.66-1.25) mg/dL Est GFR (CKD-EPI)AfAm (>60 ml/min/1.73 sqM) Est GFR (CKD-EPI)NonAf (>60 ml/min/1.73 sqM) Glucose (74-99) mg/dL POC Glucose (mg/dL) 209 H (70-110) mg/dL POC Glu Kennel Worker ID [place] Karla Plasma Lactic Acid [place] (0.7-2.0) mmol/L Calcium (8.4-10.2) mg/dL Phosphorus (2.5-4.5) mg/dL Magnesium (1.6-2.3) mg/dL Total Bilirubin (0.2-1.3) mg/dL AST (17-59) U/L ALT (4-49) U/L Alkaline Phosphatase (38-126) U/L Total Protein (6.3-8.2) g/dL Albumin (3.5-5.0) g/dL Urine Color Urine Appearance (Clear) Urine pH (5.0-8.0) Ur Specific [place] (1.001-1.035) Urine Protein (Negative) Urine Glucose (UA) (Negative) Urine Ketones (Negative) Urine Blood (Negative) Urine Nitrite (Negative) Urine Bilirubin (Negative) Urine Urobilinogen (<2.0) mg/dL Ur Leukocyte Esterase (Negative) Acetone, Qual (Negative) Disposition Clinical Impression: Hyperglycemia Disposition: HOME SELF-CARE Condition: Stable Instructions (If sedation given, give patient instructions): Diabetic Hyperglycemia (ED) Additional Instructions: Please return to the Emergency Department if symptoms worsen or any other concerns. Is patient prescribed a controlled substance at d/c from ED?: No Referrals: None,Stated [Primary Care Provider] - 1-2 days Forms: Area PCPs Time of Disposition: 01:17
[2025-02-19 22:32] LABS: Basophils # (A) 0.04 10*3/uL (0.00-0.10); Basophils % (A) 0.6 %; Eosinophils # (A) 0.14 10*3/uL (0.04-0.35); Eosinophils % (A) 2.1 %; HCT 45.2 % (39.6-50.0); HGB 15.2 g/dL (13.0-17.0); Lymphocytes # (A) 2.31 10*3/uL (0.90-5.00); Lymphocytes % (A) 34.3 %; MCH 31.8 pg (27.0-32.0); MCHC 33.6 g/dL (32.0-37.0); MCV 94.6 fL (80.0-97.0); Mean Platelet Volume 10.8 fL (9.5-12.2); Monocytes # (A) 0.38 10*3/uL (0.20-1.00); Monocytes % (A) 5.6 %; Neutrophils # (A) 3.85 10*3/uL (1.80-7.70); Neutrophils % (A) 57.1 %; Platelet Count 279 10*3/uL (140-440); RBC 4.78 10*6/uL (4.40-5.60); RDW 12.5 % (11.5-14.5); WBC 6.74 10*3/uL (4.50-10.00)
[2025-02-19] MEDS: SODIUM CHLORIDE 0.9% 1,000 ML IV STA (22:41)
[2025-02-19 22:45] LABS: ALT 19 U/L (4-49); AST 16 U/L (17-59); African American GFR (CKD) >90 (>60 ml/min/1.73 sqM); Albumin 3.8 g/dL (3.5-5.0); Alkaline Phosphatase 68 U/L (38-126); Anion Gap 6 mmol/L; Blood Urea Nitrogen 15 mg/dL (9-20); Carbon Dioxide 28 mmol/L (22-30); Chloride 99 mmol/L (98-107); Glucose 456 mg/dL (74-99); Non-African American GFR(CKD) >90 (>60 ml/min/1.73 sqM); Phosphorus 3.5 mg/dL (2.5-4.5); Potassium 4.5 mmol/L (3.5-5.1); Sodium 133 mmol/L (137-145); Total Bilirubin 0.3 mg/dL (0.2-1.3); Total Protein 6.2 g/dL (6.3-8.2)
[2025-02-19 23:01] LABS: VBG PH 7.39 (7.31-7.41)
[2025-02-19 23:53] LABS: Appearance,Urine Clear (Clear); Bilirubin,Urine Negative (Negative); Blood,Urine Negative (Negative); Color,Urine Colorless; Glucose,Urine (UA) 4+ (Negative); Ketones,Urine Negative (Negative); Leukocyte Esterase,Urine Negative (Negative); Nitrite,Urine Negative (Negative); Protein,Urine Negative (Negative); Specific Gravity,Urine 1.027 (1.001-1.035); Urobilinogen,Urine <2.0 mg/dL (<2.0)
[2025-02-20] MEDS: SODIUM CHLORIDE 0.9% 1,000 ML IV STA (00:10)
[2025-02-20] MEDS: INSULIN REGULAR 100 UNIT/ML VIAL (IV) IV ONE (00:11)
[2025-02-20 00:44] LABS: Glucose,Whole Blood 209 mg/dL (70-110)
[2025-02-20 01:33] VITALS: BP 116/77; PULSE 80; TEMP 98.2
== END 2025-02-20 01:33 | disposition home or self-care (01) ==
LOC: EC 20:58
DX: E11.65 Type 2 diabetes mellitus with hyperglycemia (principal); I45.10 Unspecified right bundle-branch block; F17.200 Nicotine dependence, unspecified, uncomplicated
CPT/HCPCS: 36415; 80053; 81003; 82009; 82803; 83605; 83735; 84100; 85025; 93005; 96360; 96361; 99285

== ENCOUNTER 2025-03-04 23:05 | Emergency (ER) | payer MEDICARE ==
[2025-03-04 23:09] VITALS: RESP 18
--- NOTE | 2025-03-04 23:22 | ED ---
General Adult HPI - General Chief complaint: Fall Stated complaint: Fall-Head injury Time Seen by Provider: 03/04/25 23:09 Source: patient, RN notes reviewed Mode of arrival: ambulatory Limitations: no limitations - History of Present Illness Initial comments: 59-year-old male presenting to the emergency department with complaints of a syncopal event and head injury. Patient states that he was walking outside to smoke a cigarette when he passed out that was observed by bystander from hotel that he has been staying. States that he does not remember falling however patient is a poor historian and does have a history of dementia. Patient states that he was helped up after the fall and was urged by friends to report to the emergency department. Currently patient states that he is feeling well and denies headaches, visual disturbances, neck pain, chest pain, difficulty breathing, heart palpitations. Additionally, at the time of the fall patient denies loss of bladder bowel control or biting his tongue. He denies history of seizures. Denies blood thinner use. Patient does have multiple health conditions including diabetes and hypertension however his not been on medications for these conditions and is scheduled to see primary care provider this upcoming week. - Related Data Previous Rx's Medication Instructions Recorded Pantoprazole [Protonix] 40 mg PO AC-BRKFST #14 tab 02/01/25 Blood Sugar Diagnostic [Glucose 1 each ACHS #100 strip 02/10/25 Test Strip] INSULIN LISPRO (humaLOG) [humaLOG] 1 injection SQ DIRECTED #10 ml 02/10/25 Insulin Glargine (Lantus) [Lantus 10 unit SQ BID@0700,2100 #7 each 02/10/25 Vial] Allergies Allergy/AdvReac Type Severity Reaction Status Date / Time No Known Allergies Allergy Verified 03/04/25 23:08 Review of Systems ROS Statement: Those systems with pertinent positive or pertinent negative responses have been documented in the HPI. ROS Other: All systems not noted in ROS Statement are negative. Past Medical History Past Medical History: Dementia, Diabetes Mellitus, Hypertension Additional Past Medical History / Comment(s): neuropathy, sciatica History of Any Multi-Drug Resistant Organisms: None Reported Past Surgical History: Tonsillectomy Past Anesthesia/Blood Transfusion Reactions: No Reported Reaction Past Psychological History: No Psychological Hx Reported Smoking Status: Current every day smoker Past Alcohol Use History: Occasional Past Drug Use History: None Reported General Exam Limitations: no limitations General appearance: alert, in no apparent distress Head exam: Present: other (posterior scalp laceration, .25 cm, bleeding controlled) ENT exam: Present: normal exam, mucous membranes moist Neck exam: Present: normal inspection. Absent: tenderness, meningismus, lymphadenopathy Respiratory exam: Present: normal lung sounds bilaterally. Absent: respiratory distress, wheezes, rales, rhonchi, stridor Cardiovascular Exam: Present: regular rate, normal rhythm, normal heart sounds. Absent: systolic murmur, diastolic murmur, rubs, gallop, clicks GI/Abdominal exam: Present: soft, normal bowel sounds. Absent: distended, tenderness, guarding, rebound, rigid Extremities exam: Present: normal inspection, full ROM, normal capillary refill. Absent: tenderness, pedal edema, joint swelling, calf tenderness Skin exam: Present: warm, dry, intact, normal color. Absent: rash Course Vital Signs 03/04/25 03/05/25 23:06 02:47 Temperature 97.9 F 97.8 F Pulse Rate 74 66 Respiratory 18 18 Rate Blood Pressure 169/97 150/92 O2 Sat by Pulse 99 98 Oximetry Medical Decision Making - Medical Decision Making Was pt. sent in by a medical professional or institution (, PA, SANE RN, urgent care, hospital, or senior living...) When possible be specific @ -No Did you speak to anyone other than the patient for history (EMS, parent, family, police, friend...)? What history was obtained from this source @ -No Did you review nursing and triage notes (agree or disagree)? Why? @ -I reviewed and agree with nursing and triage notes Were old charts reviewed (outside hosp., previous admission, EMS record, old EKG, old radiological studies, urgent care reports/EKG's, senior living records)? Report findings @ -No old charts were reviewed Differential Diagnosis (chest pain, altered mental status, abdominal pain women, abdominal pain men, vaginal bleeding, weakness, fever, dyspnea, syncope, headache, dizziness, GI bleed, back pain, seizure, CVA, palpatations, mental health, musculoskeletal)? @ -Not applicable EKG interpreted by me (3pts min.). @ -Completed at 2338 sinus rhythm with a ventricular rate of 69, [place] interval 144, QRS 158 QT 423, QTc 442. X-rays interpreted by me (1pt min.). @ -None done CT interpreted by me (1pt min.). @ -CT of the brain and cervical spine without contrast no acute intracranial or cervical spine process U/S interpreted by me (1pt. min.). @ -None done What testing was considered but not performed or refused? (CT, X-rays, U/S, labs)? Why? @ -None What meds were considered but not given or refused? Why? @ -None Did you discuss the management of the patient with other professionals (professionals i.e. , PA, SANE RN, lab, RT, psych nurse, social services director, special needs nanny, teacher, risk control officer, case packer)? Give summary @ -No Was smoking cessation discussed for >3mins.? @ -No Was critical care preformed (if so, how long)? @ -No Were there social determinants of health that impacted care today? How? (Homelessness, low income, unemployed, alcoholism, drug addiction, transportation, low edu. Level, literacy, decrease access to med. care, senior care, rehab)? @ -No Was there de-escalation of care discussed even if they declined (Discuss DNR or withdrawal of care, Hospice)? DNR status @ -No What co-morbidities impacted this encounter? (DM, HTN, Smoking, COPD, CAD, Cancer, CVA, ARF, Chemo, Hep., AIDS, mental health diagnosis, sleep apnea, morbid obesity)? @ -None Was patient admitted / discharged? Hospital course, mention meds given and route, prescriptions, significant lab abnormalities, going to OR and other pertinent info. @ -Discharge. 59-year-old male presents emergency department after a fall and head injury. Initial vitals are hypertensive with a blood pressure 160/97. Overall patient is well-appearing and is alert oriented x 4. There is a posterior scalp laceration measuring 0.25 cm bleeding is controlled. Patient is up-to-date on tetanus vaccine. EKG is in sinus rhythm. Laboratory testing is unremarkable including CBC, CMP, urinalysis, troponin, urine toxicology, serum alcohol and acetone. Patient is hyperglycemic with a glucose of 373 is provided with subcu insulin. Patient is stable for discharge with appropriate follow-up with memory care provider as scheduled. Case discussed with Dr. Hairston Undiagnosed new problem with uncertain prognosis? @ -No Drug Therapy requiring intensive monitoring for toxicity (Heparin, Nitro, Insulin, Cardizem)? @ -No Were any procedures done? @ -No Diagnosis/symptom? @ -Syncope, fall, posterior head laceration Acute, or Chronic, or Acute on Chronic? @ -Acute Uncomplicated (without systemic symptoms) or Complicated (systemic symptoms)? @ -Uncomplicated Side effects of treatment? @ -No Exacerbation, Progression, or Severe Exacerbation? @ -No Poses a threat to life or bodily function? How? (Chest pain, [place], [place], pneumonia, PE, COPD, DKA, ARF, appy, cholecystitis, CVA, Diverticulitis, Homicidal, Suicidal, threat to staff... and all critical care pts) @ -No - Lab Data Result diagrams: 03/04/25 23:52 03/05/25 01:25 Lab Results 03/04/25 03/04/25 03/04/25 Range/Units 23:52 23:52 23:52 WBC 7.20 (4.50-10.00) 10*3/uL RBC 4.99 (4.40-5.60) 10*6/uL Hgb 15.9 (13.0-17.0) g/dL Hct 45.9 (39.6-50.0) % MCV 92.0 (80.0-97.0) fL MCH 31.9 (27.0-32.0) pg MCHC 34.6 (32.0-37.0) g/dL Plt Count 238 (140-440) 10*3/uL MPV 11.3 (9.5-12.2) fL Immature Gran % (Auto) 0.3 % Neutrophils % 53.9 % Lymphocytes % 36.0 % Monocytes % 6.4 % Eosinophils % 2.8 % Basophils % 0.6 % Immature Gran # 0.02 (0.00-0.04) 10*3/uL Neutrophils # 3.89 (1.80-7.70) 10*3/uL Lymphocytes # 2.59 (0.90-5.00) 10*3/uL Monocytes # 0.46 (0.20-1.00) 10*3/uL Eosinophils # 0.20 (0.04-0.35) 10*3/uL Basophils # 0.04 (0.00-0.10) 10*3/uL PT 10.8 (10.0-12.5) sec INR 1.0 (<1.2) APTT 23.7 (22.0-30.0) sec Sodium (137-145) mmol/L Potassium (3.5-5.1) mmol/L Chloride (98-107) mmol/L Carbon Dioxide (22-30) mmol/L Anion Gap mmol/L BUN (9-20) mg/dL Creatinine (0.66-1.25) mg/dL Est GFR (CKD-EPI)AfAm (>60 ml/min/1.73 sqM) Est GFR (CKD-EPI)NonAf (>60 ml/min/1.73 sqM) Glucose (74-99) mg/dL POC Glucose (mg/dL) (70-110) mg/dL POC Glu Portfolio Accountant ID Calcium (8.4-10.2) mg/dL Magnesium (1.6-2.3) mg/dL Total Bilirubin (0.2-1.3) mg/dL AST (17-59) U/L ALT (4-49) U/L Alkaline Phosphatase (38-126) U/L Troponin I (0.000-0.034) ng/mL Total Protein (6.3-8.2) g/dL Albumin (3.5-5.0) g/dL Urine Color Colorless Urine Appearance Clear (Clear) Urine pH 6.0 (5.0-8.0) Ur Specific [place] 1.036 H (1.001-1.035) Urine Protein Negative (Negative) Urine Glucose (UA) 4+ H (Negative) Urine Ketones Negative (Negative) Urine Blood Negative (Negative) Urine Nitrite Negative (Negative) Urine Bilirubin Negative (Negative) Urine Urobilinogen <2.0 (<2.0) mg/dL Ur Leukocyte Esterase Negative (Negative) Urine Opiates Screen (NotDetected) Ur Oxycodone Screen (NotDetected) Urine Methadone Screen (NotDetected) Ur Barbiturates Screen (NotDetected) U Tricyclic Antidepress (NotDetected) Ur Phencyclidine Scrn (NotDetected) Ur Amphetamines Screen (NotDetected) U Methamphetamines Scrn (NotDetected) U Benzodiazepines Scrn (NotDetected) Urine Cocaine Screen (NotDetected) U Marijuana (THC) Screen (NotDetected) Serum Alcohol mg/dL Acetone, Qual (Negative) 03/04/25 03/04/25 03/04/25 Range/Units 23:52 23:52 23:57 WBC (4.50-10.00) 10*3/uL RBC (4.40-5.60) 10*6/uL Hgb (13.0-17.0) g/dL Hct (39.6-50.0) % MCV (80.0-97.0) fL MCH (27.0-32.0) pg MCHC (32.0-37.0) g/dL Plt Count (140-440) 10*3/uL MPV (9.5-12.2) fL Immature Gran % (Auto) % Neutrophils % % Lymphocytes % % Monocytes % % Eosinophils % % Basophils % % Immature Gran # (0.00-0.04) 10*3/uL Neutrophils # (1.80-7.70) 10*3/uL Lymphocytes # (0.90-5.00) 10*3/uL Monocytes # (0.20-1.00) 10*3/uL Eosinophils # (0.04-0.35) 10*3/uL Basophils # (0.00-0.10) 10*3/uL PT (10.0-12.5) sec INR (<1.2) APTT (22.0-30.0) sec Sodium (137-145) mmol/L Potassium (3.5-5.1) mmol/L Chloride (98-107) mmol/L Carbon Dioxide (22-30) mmol/L Anion Gap mmol/L BUN (9-20) mg/dL Creatinine (0.66-1.25) mg/dL Est GFR (CKD-EPI)AfAm (>60 ml/min/1.73 sqM) Est GFR (CKD-EPI)NonAf (>60 ml/min/1.73 sqM) Glucose (74-99) mg/dL POC Glucose (mg/dL) 389 H (70-110) mg/dL POC Glu Portfolio Accountant ID ARISTIDES SCIANDRA Calcium (8.4-10.2) mg/dL Magnesium (1.6-2.3) mg/dL Total Bilirubin (0.2-1.3) mg/dL AST (17-59) U/L ALT (4-49) U/L Alkaline Phosphatase (38-126) U/L Troponin I <0.012 (0.000-0.034) ng/mL Total Protein (6.3-8.2) g/dL Albumin (3.5-5.0) g/dL Urine Color Urine Appearance (Clear) Urine pH (5.0-8.0) Ur Specific [place] (1.001-1.035) Urine Protein (Negative) Urine Glucose (UA) (Negative) Urine Ketones (Negative) Urine Blood (Negative) Urine Nitrite (Negative) Urine Bilirubin (Negative) Urine Urobilinogen (<2.0) mg/dL Ur Leukocyte Esterase (Negative) Urine Opiates Screen Not Detected (NotDetected) Ur Oxycodone Screen Not Detected (NotDetected) Urine Methadone Screen Not Detected (NotDetected) Ur Barbiturates Screen Not Detected (NotDetected) U Tricyclic Antidepress Not Detected (NotDetected) Ur Phencyclidine Scrn Not Detected (NotDetected) Ur Amphetamines Screen Not Detected (NotDetected) U Methamphetamines Scrn Not Detected (NotDetected) U Benzodiazepines Scrn Not Detected (NotDetected) Urine Cocaine Screen Not Detected (NotDetected) U Marijuana (THC) Screen Not Detected (NotDetected) Serum Alcohol mg/dL Acetone, Qual (Negative) 03/05/25 Range/Units 01:25 WBC (4.50-10.00) 10*3/uL RBC (4.40-5.60) 10*6/uL Hgb (13.0-17.0) g/dL Hct (39.6-50.0) % MCV (80.0-97.0) fL MCH (27.0-32.0) pg MCHC (32.0-37.0) g/dL Plt Count (140-440) 10*3/uL MPV (9.5-12.2) fL Immature Gran % (Auto) % Neutrophils % % Lymphocytes % % Monocytes % % Eosinophils % % Basophils % % Immature Gran # (0.00-0.04) 10*3/uL Neutrophils # (1.80-7.70) 10*3/uL Lymphocytes # (0.90-5.00) 10*3/uL Monocytes # (0.20-1.00) 10*3/uL Eosinophils # (0.04-0.35) 10*3/uL Basophils # (0.00-0.10) 10*3/uL PT (10.0-12.5) sec INR (<1.2) APTT (22.0-30.0) sec Sodium 135 L (137-145) mmol/L Potassium 3.9 (3.5-5.1) mmol/L Chloride 102 (98-107) mmol/L Carbon Dioxide 28 (22-30) mmol/L Anion Gap 5 mmol/L BUN 19 (9-20) mg/dL Creatinine 0.57 L (0.66-1.25) mg/dL Est GFR (CKD-EPI)AfAm >90 (>60 ml/min/1.73 sqM) Est GFR (CKD-EPI)NonAf >90 (>60 ml/min/1.73 sqM) Glucose 373 H (74-99) mg/dL POC Glucose (mg/dL) (70-110) mg/dL POC Glu Portfolio Accountant ID Calcium 9.9 (8.4-10.2) mg/dL Magnesium 1.9 (1.6-2.3) mg/dL Total Bilirubin 0.5 (0.2-1.3) mg/dL AST 17 (17-59) U/L ALT 16 (4-49) U/L Alkaline Phosphatase 75 (38-126) U/L Troponin I (0.000-0.034) ng/mL Total Protein 6.2 L (6.3-8.2) g/dL Albumin 3.8 (3.5-5.0) g/dL Urine Color Urine Appearance (Clear) Urine pH (5.0-8.0) Ur Specific [place] (1.001-1.035) Urine Protein (Negative) Urine Glucose (UA) (Negative) Urine Ketones (Negative) Urine Blood (Negative) Urine Nitrite (Negative) Urine Bilirubin (Negative) Urine Urobilinogen (<2.0) mg/dL Ur Leukocyte Esterase (Negative) Urine Opiates Screen (NotDetected) Ur Oxycodone Screen (NotDetected) Urine Methadone Screen (NotDetected) Ur Barbiturates Screen (NotDetected) U Tricyclic Antidepress (NotDetected) Ur Phencyclidine Scrn (NotDetected) Ur Amphetamines Screen (NotDetected) U Methamphetamines Scrn (NotDetected) U Benzodiazepines Scrn (NotDetected) Urine Cocaine Screen (NotDetected) U Marijuana (THC) Screen (NotDetected) Serum Alcohol <10 mg/dL Acetone, Qual Negative (Negative) Disposition Clinical Impression: Fall, Syncope, Abrasion of head Disposition: HOME SELF-CARE Condition: Stable Instructions (If sedation given, give patient instructions): Fall Prevention for Older Adults (ED), Abrasion (ED) Additional Instructions: Please return to the Emergency Department if symptoms worsen or any other concerns. Is patient prescribed a controlled substance at d/c from ED?: No Referrals: None,Stated [Primary Care Provider] - 1-2 days Time of Disposition: 02:09
[2025-03-04 23:58] LABS: Glucose,Whole Blood 389 mg/dL (70-110)
[2025-03-05 00:03] LABS: Basophils # (A) 0.04 10*3/uL (0.00-0.10); Basophils % (A) 0.6 %; Eosinophils % (A) 2.8 %; HCT 45.9 % (39.6-50.0); HGB 15.9 g/dL (13.0-17.0); Lymphocytes # (A) 2.59 10*3/uL (0.90-5.00); MCH 31.9 pg (27.0-32.0); MCHC 34.6 g/dL (32.0-37.0); Mean Platelet Volume 11.3 fL (9.5-12.2); Monocytes # (A) 0.46 10*3/uL (0.20-1.00); Monocytes % (A) 6.4 %; Neutrophils # (A) 3.89 10*3/uL (1.80-7.70); Neutrophils % (A) 53.9 %; Platelet Count 238 10*3/uL (140-440); RBC 4.99 10*6/uL (4.40-5.60); RDW 12.6 % (11.5-14.5)
[2025-03-05 00:08] LABS: Appearance,Urine Clear (Clear); Bilirubin,Urine Negative (Negative); Blood,Urine Negative (Negative); Color,Urine Colorless; Glucose,Urine (UA) 4+ (Negative); Ketones,Urine Negative (Negative); Leukocyte Esterase,Urine Negative (Negative); Nitrite,Urine Negative (Negative); Protein,Urine Negative (Negative); Specific Gravity,Urine 1.036 (1.001-1.035); Urobilinogen,Urine <2.0 mg/dL (<2.0)
[2025-03-05 00:16] LABS: Partial Thromboplastin Time 23.7 sec (22.0-30.0); Prothrombin Time 10.8 sec (10.0-12.5)
[2025-03-05 00:24] LABS: Amphetamine Screen,Urine Not Detected (NotDetected); Barbiturate Screen,Urine Not Detected (NotDetected); Benzodiazepines Screen,Urine Not Detected (NotDetected); Cocaine Screen,Urine Not Detected (NotDetected); Methadone Screen, Urine Not Detected (NotDetected); Opiate Screen,Urine Not Detected (NotDetected); Oxycodone Screen, Urine Not Detected (NotDetected); Phencyclidine Screen,Urine Not Detected (NotDetected); Tricyclic Antidepressant,Urine Not Detected (NotDetected); Urn Cannabinoid Scrn Not Detected (NotDetected)
--- NOTE | 2025-03-05 00:58 | CT ---
EXAM: CT Head Without Intravenous Contrast CLINICAL HISTORY: ITS.REASON CT Reason: syncope, head injury TECHNIQUE: Axial computed tomography images of the head/brain without intravenous contrast. CTDI is 45.2 mGy and DLP is 1115 mGy-cm. This CT exam was performed using one or more of the following dose reduction techniques: automated exposure control, adjustment of the mA and/or kV according to patient size, and/or use of iterative reconstruction technique. COMPARISON: No relevant prior studies available. FINDINGS: Brain: Age-related cerebral volume loss. Periventricular and subcortical white matter hypoattenuation, consistent with chronic microangiopathy. No acute intracranial hemorrhage. No midline shift or mass effect. Ventricles: Unremarkable. No ventriculomegaly. Bones/joints: Unremarkable. No acute fracture. Soft tissues: Unremarkable. Sinuses: Unremarkable as visualized. No acute sinusitis. Mastoid air cells: Unremarkable as visualized. No mastoid effusion. IMPRESSION: No acute intracranial hemorrhage. No midline shift or mass effect. EXAM: CT Cervical Spine Without Intravenous Contrast CLINICAL HISTORY: ITS.REASON CT Reason: syncope, head injury TECHNIQUE: Axial computed tomography images of the cervical spine without intravenous contrast. CTDI is 9.2 mGy and DLP is 284.8 mGy-cm. This CT exam was performed using one or more of the following dose reduction techniques: automated exposure control, adjustment of the mA and/or kV according to patient size, and/or use of iterative reconstruction technique. COMPARISON: No relevant prior studies available. FINDINGS: The vertebral body heights are maintained. The craniocervical junction is intact. The atlanto-dens interval is maintained. The dens is intact. There is no spondylolisthesis. Multilevel cervical spondylosis and degenerative disc disease. Straightening of the cervical lordosis. The unenhanced neck soft tissues are grossly unremarkable. The visualized lung apices are grossly clear. IMPRESSION: No acute fracture or subluxation of the cervical spine.
--- NOTE | 2025-03-05 01:13 | XR ---
EXAM: XR Chest, 2 Views CLINICAL HISTORY: ITS.REASON XR Reason: syncope TECHNIQUE: Frontal and lateral views of the chest. COMPARISON: No relevant prior studies available. FINDINGS: Lungs: Unremarkable. No consolidation. Pleural space: Unremarkable. No pneumothorax. Heart: Unremarkable. No cardiomegaly. Mediastinum: Unremarkable. Bones/joints: Unremarkable. IMPRESSION: No consolidation.
[2025-03-05 01:51] LABS: ALT 16 U/L (4-49); AST 17 U/L (17-59); African American GFR (CKD) >90 (>60 ml/min/1.73 sqM); Albumin 3.8 g/dL (3.5-5.0); Alcohol <10 mg/dL; Alkaline Phosphatase 75 U/L (38-126); Anion Gap 5 mmol/L; Blood Urea Nitrogen 19 mg/dL (9-20); Calcium 9.9 mg/dL (8.4-10.2); Carbon Dioxide 28 mmol/L (22-30); Chloride 102 mmol/L (98-107); Glucose 373 mg/dL (74-99); Magnesium 1.9 mg/dL (1.6-2.3); Non-African American GFR(CKD) >90 (>60 ml/min/1.73 sqM); Potassium 3.9 mmol/L (3.5-5.1); Sodium 135 mmol/L (137-145); Total Bilirubin 0.5 mg/dL (0.2-1.3); Total Protein 6.2 g/dL (6.3-8.2)
[2025-03-05] MEDS: INSULIN LISPRO (HumaLOG) 100 UNIT/ML 10 mL VL SQ ONE (02:32)
[2025-03-05 02:48] VITALS: BP 150/92; PULSE 66; TEMP 97.8
== END 2025-03-05 02:48 | disposition home or self-care (01) ==
LOC: EC 23:05
DX: S00.91XA Abrasion of unspecified part of head, initial encounter (principal); F17.200 Nicotine dependence, unspecified, uncomplicated; W19.XXXA Unspecified fall, initial encounter; Y93.01 Activity, walking, marching and hiking
CPT/HCPCS: 36415; 93005; 80053; 82009; 83735; 84484; 85025; 85610; 85730; 80306; 99284; G0480; 70450; 71046; 72125; 80320; 81003

== ENCOUNTER 2025-04-08 20:57 | Emergency (ER) | payer MEDICARE ==
[2025-04-08 21:06] LABS: Glucose,Whole Blood 322 mg/dL (70-110)
[2025-04-08 21:07] VITALS: RESP 18
--- NOTE | 2025-04-08 21:47 | ED ---
Recheck HPI - General Chief Complaint: Recheck/Abnormal Lab/Rx Stated Complaint: Abnormal Labs Time Seen by Provider: 04/08/25 21:07 Source: patient, EMS, RN notes reviewed, old records reviewed Mode of arrival: EMS Limitations: no limitations - History of Present Illness Initial Comments: This is a 59-year-old male who presents today for evaluation of elevated blood sugar. Patient states he is having difficulty controlling his blood sugars with recent diagnosis of diabetes it has been 2 months and his blood sugars have been high MD Complaint: abnormal lab (Elevated blood sugar) -: month(s) Symptoms Since Prior Visit: no new symptoms Context: planned re-check, called for abnormal lab result Associated Symptoms: none - Related Data Previous Rx's Medication Instructions Recorded metFORMIN HCL [Glucophage] 1,500 mg PO BID #90 tab 04/08/25 Allergies Allergy/AdvReac Type Severity Reaction Status Date / Time No Known Allergies Allergy Verified 03/18/25 12:32 Review of Systems ROS Statement: Those systems with pertinent positive or pertinent negative responses have been documented in the HPI. ROS Other: All systems not noted in ROS Statement are negative. Past Medical History Past Medical History: Dementia, Diabetes Mellitus, Hypertension Additional Past Medical History / Comment(s): neuropathy, sciatica History of Any Multi-Drug Resistant Organisms: None Reported Past Surgical History: Tonsillectomy Past Anesthesia/Blood Transfusion Reactions: No Reported Reaction Past Psychological History: No Psychological Hx Reported Smoking Status: Current every day smoker Past Alcohol Use History: Rare Past Drug Use History: None Reported General Exam Limitations: no limitations General appearance: alert, in no apparent distress Head exam: Present: atraumatic, normocephalic, normal inspection Eye exam: Present: normal appearance, PERRL, EOMI. Absent: scleral icterus, conjunctival injection, periorbital swelling ENT exam: Present: normal exam, mucous membranes moist Neck exam: Present: normal inspection. Absent: tenderness, meningismus, lymphadenopathy Respiratory exam: Present: normal lung sounds bilaterally. Absent: respiratory distress, wheezes, rales, rhonchi, stridor Cardiovascular Exam: Present: regular rate, normal rhythm, normal heart sounds. Absent: systolic murmur, diastolic murmur, rubs, gallop, clicks GI/Abdominal exam: Present: soft, normal bowel sounds. Absent: distended, tenderness, guarding, rebound, rigid Extremities exam: Present: normal inspection, full ROM, normal capillary refill. Absent: tenderness, pedal edema, joint swelling, calf tenderness Back exam: Present: normal inspection Neurological exam: Present: alert, oriented X3, CN II-XII intact Psychiatric exam: Present: normal affect, normal mood Skin exam: Present: warm, dry, intact, normal color. Absent: rash Course Vital Signs 04/08/25 21:02 Temperature 98.0 F Pulse Rate 69 Respiratory 18 Rate Blood Pressure 151/97 O2 Sat by Pulse 99 Oximetry - Reevaluation(s) Reevaluation #1: 04/08/25 23:07 Medical records reviewed Reevaluation #2: 04/08/25 23:10 Patient symptoms are improving here in the ER Reevaluation #3: 04/08/25 23:10 Patient informed of results and questions answered Reevaluation #4: Was pt. sent in by a medical professional or institution (, PA, REAL ESTATE SALESPERSON, urgent care, hospital, or correction...) When possible be specific @ -no Did you speak to anyone other than the patient for history (EMS, parent, family, police, friend...)? What history was obtained from this source @ -no Did you review nursing and triage notes (agree or disagree)? Why? @ -agree Are old charts reviewed (outside hosp., previous admission, EMS record, old EKG, old radiological studies, urgent care reports/EKG's, correction records)? Report findings @ -yes Differential Diagnosis (chest pain, altered mental status, abdominal pain women, abdominal pain men, vaginal bleeding, weakness, fever, dyspnea, syncope, headache, dizziness, GI bleed, back pain, seizure, CVA, palpatations, mental health, musculoskeletal)? @ -prior EKG interpreted by me (3pts min.). @ -yes X-rays interpreted by me (1pt min.). @ -yes negative for acute disease CT interpreted by me (1pt min.). @ -no U/S interpreted by me (1pt. min.). @ -no What testing was considered but not performed or refused? (CT, X-rays, U/S, labs)? Why? @ -none What meds were considered but not given or refused? Why? @ -none Did you discuss the management of the patient with other professionals ( professionals i.e. , PA, REAL ESTATE SALESPERSON, lab, RT, psych nurse, social security assessor, animal ecologist, teacher, senior commercial loan officer, piano case maker)? Give summary @ -no Was smoking cessation discussed for >3mins.? @ -no Was critical care preformed (if so, how long)? @ -no Were there social determinants of health that impacted care today? How? (Homelessness, low income, unemployed, alcoholism, drug addiction, transportation, low edu. Level, literacy, decrease access to med. care, fdc, rehab)? @ -none Was there de-escalation of care discussed even if they declined (Discuss DNR or withdrawal of care, Hospice)? DNR status @ -no What co-morbidities impacted this encounter? (DM, HTN, Smoking, COPD, CAD, Cancer, CVA, ARF, Chemo, Hep., AIDS, mental health diagnosis, sleep apnea, morbid obesity)? @ -none Was patient admitted / discharged? Hospital course, mention meds given and route, prescriptions, significant lab abnormalities, going to OR and other pertinent info. @ - Undiagnosed new problem with uncertain prognosis? @ -no Drug Therapy requiring intensive monitoring for toxicity (Heparin, Nitro, Insulin, Cardizem)? @ -no Were any procedures done? @ -no Diagnosis/symptom? @ - Acute, or Chronic, or Acute on Chronic? @ -Acute Uncomplicated (without systemic symptoms) or Complicated (systemic symptoms)? @ -Complicated Side effects of treatment? @ -no Exacerbation, Progression, or Severe Exacerbation? @ -exacerbation Poses a threat to life or bodily function? How? (Chest pain, [place], [place], pneumonia, PE, COPD, DKA, ARF, appy, cholecystitis, CVA, Diverticulitis, Homicidal, Suicidal, threat to staff... and all critical care pts) @ -yes Reevaluation #5: Differential Weakness: Hypoglycemia, shock, sepsis, hyponatremia, anemia, infection, [place], ETOH, adverse medicine reaction, overdose, stroke, this is not meant to be an all-inclusive list. Medical Decision Making - Medical Decision Making 59 male to ER for evaluation, patient has diabetes acute hyperglycemia blood sugar improved here in the ER patient can be discharged home - Lab Data Result diagrams: 04/08/25 22:18 04/08/25 22:18 Lab Results 04/08/25 04/08/25 04/08/25 Range/Units 21:04 22:18 22:18 WBC 6.67 (4.50-10.00) 10*3/uL RBC 5.45 (4.40-5.60) 10*6/uL Hgb 17.1 H (13.0-17.0) g/dL Hct 48.8 (39.6-50.0) % MCV 89.5 (80.0-97.0) fL MCH 31.4 (27.0-32.0) pg MCHC 35.0 (32.0-37.0) g/dL Plt Count 261 (140-440) 10*3/uL MPV 10.9 (9.5-12.2) fL Immature Gran % (Auto) 0.3 % Neutrophils % 49.4 % Lymphocytes % 40.9 % Monocytes % 6.0 % Eosinophils % 3.0 % Basophils % 0.4 % Immature Gran # 0.02 (0.00-0.04) 10*3/uL Neutrophils # 3.29 (1.80-7.70) 10*3/uL Lymphocytes # 2.73 (0.90-5.00) 10*3/uL Monocytes # 0.40 (0.20-1.00) 10*3/uL Eosinophils # 0.20 (0.04-0.35) 10*3/uL Basophils # 0.03 (0.00-0.10) 10*3/uL PT 11.1 (10.0-12.5) sec INR 1.0 (<1.2) APTT 24.5 (22.0-30.0) sec VBG pH (7.31-7.41) VBG pCO2 (37-51) mmHg VBG HCO3 (24-28) mmol/L Sodium (137-145) mmol/L Potassium (3.5-5.1) mmol/L Chloride (98-107) mmol/L Carbon Dioxide (22-30) mmol/L Anion Gap mmol/L BUN (9-20) mg/dL Creatinine (0.66-1.25) mg/dL Est GFR (CKD-EPI)AfAm (>60 ml/min/1.73 sqM) Est GFR (CKD-EPI)NonAf (>60 ml/min/1.73 sqM) Glucose (74-99) mg/dL POC Glucose (mg/dL) 322 H (70-110) mg/dL POC Glu Sculpture Conservator ID Ronnie Kramer Plasma Lactic Acid Blaine (0.7-2.0) mmol/L Calcium (8.4-10.2) mg/dL Phosphorus (2.5-4.5) mg/dL Magnesium (1.6-2.3) mg/dL Total Bilirubin (0.2-1.3) mg/dL AST (17-59) U/L ALT (4-49) U/L Alkaline Phosphatase (38-126) U/L Troponin I (0.000-0.034) ng/mL Total Protein (6.3-8.2) g/dL Albumin (3.5-5.0) g/dL Urine Color Urine Appearance (Clear) Urine pH (5.0-8.0) Ur Specific Dalton (1.001-1.035) Urine Protein (Negative) Urine Glucose (UA) (Negative) Urine Ketones (Negative) Urine Blood (Negative) Urine Nitrite (Negative) Urine Bilirubin (Negative) Urine Urobilinogen (<2.0) mg/dL Ur Leukocyte Esterase (Negative) Acetone, Qual (Negative) 04/08/25 04/08/25 04/08/25 Range/Units 22:18 22:18 22:18 WBC (4.50-10.00) 10*3/uL RBC (4.40-5.60) 10*6/uL Hgb (13.0-17.0) g/dL Hct (39.6-50.0) % MCV (80.0-97.0) fL MCH (27.0-32.0) pg MCHC (32.0-37.0) g/dL Plt Count (140-440) 10*3/uL MPV (9.5-12.2) fL Immature Gran % (Auto) % Neutrophils % % Lymphocytes % % Monocytes % % Eosinophils % % Basophils % % Immature Gran # (0.00-0.04) 10*3/uL Neutrophils # (1.80-7.70) 10*3/uL Lymphocytes # (0.90-5.00) 10*3/uL Monocytes # (0.20-1.00) 10*3/uL Eosinophils # (0.04-0.35) 10*3/uL Basophils # (0.00-0.10) 10*3/uL PT (10.0-12.5) sec INR (<1.2) APTT (22.0-30.0) sec VBG pH (7.31-7.41) VBG pCO2 (37-51) mmHg VBG HCO3 (24-28) mmol/L Sodium 134 L (137-145) mmol/L Potassium 5.2 H (3.5-5.1) mmol/L Chloride 96 L (98-107) mmol/L Carbon Dioxide 25 (22-30) mmol/L Anion Gap 13 mmol/L BUN 8 L (9-20) mg/dL Creatinine 0.65 L (0.66-1.25) mg/dL Est GFR (CKD-EPI)AfAm >90 (>60 ml/min/1.73 sqM) Est GFR (CKD-EPI)NonAf >90 (>60 ml/min/1.73 sqM) Glucose 316 H (74-99) mg/dL POC Glucose (mg/dL) (70-110) mg/dL POC Glu Sculpture Conservator ID Plasma Lactic Acid Blaine 1.4 (0.7-2.0) mmol/L Calcium 10.6 H (8.4-10.2) mg/dL Phosphorus 3.7 (2.5-4.5) mg/dL Magnesium 1.9 (1.6-2.3) mg/dL Total Bilirubin 1.1 (0.2-1.3) mg/dL AST 34 (17-59) U/L ALT 29 (4-49) U/L Alkaline Phosphatase 70 (38-126) U/L Troponin I (0.000-0.034) ng/mL Total Protein 8.1 (6.3-8.2) g/dL Albumin 5.1 H (3.5-5.0) g/dL Urine Color Colorless Urine Appearance Clear (Clear) Urine pH 6.0 (5.0-8.0) Ur Specific Dalton 1.015 (1.001-1.035) Urine Protein Negative (Negative) Urine Glucose (UA) 4+ H (Negative) Urine Ketones Negative (Negative) Urine Blood Negative (Negative) Urine Nitrite Negative (Negative) Urine Bilirubin Negative (Negative) Urine Urobilinogen <2.0 (<2.0) mg/dL Ur Leukocyte Esterase Negative (Negative) Acetone, Qual Negative (Negative) 04/08/25 04/08/25 Range/Units 22:18 22:18 WBC (4.50-10.00) 10*3/uL RBC (4.40-5.60) 10*6/uL Hgb (13.0-17.0) g/dL Hct (39.6-50.0) % MCV (80.0-97.0) fL MCH (27.0-32.0) pg MCHC (32.0-37.0) g/dL Plt Count (140-440) 10*3/uL MPV (9.5-12.2) fL Immature Gran % (Auto) % Neutrophils % % Lymphocytes % % Monocytes % % Eosinophils % % Basophils % % Immature Gran # (0.00-0.04) 10*3/uL Neutrophils # (1.80-7.70) 10*3/uL Lymphocytes # (0.90-5.00) 10*3/uL Monocytes # (0.20-1.00) 10*3/uL Eosinophils # (0.04-0.35) 10*3/uL Basophils # (0.00-0.10) 10*3/uL PT (10.0-12.5) sec INR (<1.2) APTT (22.0-30.0) sec VBG pH 7.33 (7.31-7.41) VBG pCO2 57 H (37-51) mmHg VBG HCO3 31 H (24-28) mmol/L Sodium (137-145) mmol/L Potassium (3.5-5.1) mmol/L Chloride (98-107) mmol/L Carbon Dioxide (22-30) mmol/L Anion Gap mmol/L BUN (9-20) mg/dL Creatinine (0.66-1.25) mg/dL Est GFR (CKD-EPI)AfAm (>60 ml/min/1.73 sqM) Est GFR (CKD-EPI)NonAf (>60 ml/min/1.73 sqM) Glucose (74-99) mg/dL POC Glucose (mg/dL) (70-110) mg/dL POC Glu Sculpture Conservator ID Plasma Lactic Acid Blaine (0.7-2.0) mmol/L Calcium (8.4-10.2) mg/dL Phosphorus (2.5-4.5) mg/dL Magnesium (1.6-2.3) mg/dL Total Bilirubin (0.2-1.3) mg/dL AST (17-59) U/L ALT (4-49) U/L Alkaline Phosphatase (38-126) U/L Troponin I <0.012 (0.000-0.034) ng/mL Total Protein (6.3-8.2) g/dL Albumin (3.5-5.0) g/dL Urine Color Urine Appearance (Clear) Urine pH (5.0-8.0) Ur Specific Dalton (1.001-1.035) Urine Protein (Negative) Urine Glucose (UA) (Negative) Urine Ketones (Negative) Urine Blood (Negative) Urine Nitrite (Negative) Urine Bilirubin (Negative) Urine Urobilinogen (<2.0) mg/dL Ur Leukocyte Esterase (Negative) Acetone, Qual (Negative) Disposition Clinical Impression: Diabetes mellitus, new onset, Hyperglycemia Disposition: HOME SELF-CARE Condition: Fair Instructions (If sedation given, give patient instructions): Diabetic Hyperglycemia (ED) Prescriptions: metFORMIN HCL [Glucophage] 1,500 mg PO BID #90 tab Is patient prescribed a controlled substance at d/c from ED?: No Referrals: None,Stated [Primary Care Provider] - 1-2 days Time of Disposition: 23:50
[2025-04-08] MEDS: SODIUM CHLORIDE 0.9% 1,000 ML IV SCH (22:14)
[2025-04-08] MEDS: ONDANSETRON 4 MG/2 ML VIAL IVP STA (22:14)
[2025-04-08 22:37] LABS: Basophils # (A) 0.03 10*3/uL (0.00-0.10); Basophils % (A) 0.4 %; HCT 48.8 % (39.6-50.0); HGB 17.1 g/dL (13.0-17.0); Lymphocytes # (A) 2.73 10*3/uL (0.90-5.00); Lymphocytes % (A) 40.9 %; MCH 31.4 pg (27.0-32.0); MCV 89.5 fL (80.0-97.0); Mean Platelet Volume 10.9 fL (9.5-12.2); Neutrophils # (A) 3.29 10*3/uL (1.80-7.70); Neutrophils % (A) 49.4 %; Platelet Count 261 10*3/uL (140-440); RBC 5.45 10*6/uL (4.40-5.60); RDW 12.2 % (11.5-14.5); WBC 6.67 10*3/uL (4.50-10.00)
[2025-04-08 22:40] LABS: VBG PH 7.33 (7.31-7.41)
[2025-04-08 22:53] LABS: Prothrombin Time 11.1 sec (10.0-12.5)
[2025-04-08 22:54] LABS: Partial Thromboplastin Time 24.5 sec (22.0-30.0)
[2025-04-08 23:01] LABS: ALT 29 U/L (4-49); AST 34 U/L (17-59); African American GFR (CKD) >90 (>60 ml/min/1.73 sqM); Albumin 5.1 g/dL (3.5-5.0); Alkaline Phosphatase 70 U/L (38-126); Anion Gap 13 mmol/L; Blood Urea Nitrogen 8 mg/dL (9-20); Calcium 10.6 mg/dL (8.4-10.2); Carbon Dioxide 25 mmol/L (22-30); Chloride 96 mmol/L (98-107); Glucose 316 mg/dL (74-99); Magnesium 1.9 mg/dL (1.6-2.3); Non-African American GFR(CKD) >90 (>60 ml/min/1.73 sqM); Phosphorus 3.7 mg/dL (2.5-4.5); Sodium 134 mmol/L (137-145); Total Bilirubin 1.1 mg/dL (0.2-1.3); Total Protein 8.1 g/dL (6.3-8.2)
[2025-04-08 23:09] LABS: Potassium 5.2 mmol/L (3.5-5.1)
[2025-04-08 23:13] LABS: Appearance,Urine Clear (Clear); Bilirubin,Urine Negative (Negative); Blood,Urine Negative (Negative); Color,Urine Colorless; Glucose,Urine (UA) 4+ (Negative); Ketones,Urine Negative (Negative); Leukocyte Esterase,Urine Negative (Negative); Nitrite,Urine Negative (Negative); Protein,Urine Negative (Negative); Specific Gravity,Urine 1.015 (1.001-1.035); Urobilinogen,Urine <2.0 mg/dL (<2.0)
[2025-04-09 00:15] VITALS: BP 148/72; PULSE 70; TEMP 98.3
== END 2025-04-09 00:15 | disposition home or self-care (01) ==
LOC: EEVIPCON 20:57 → EC 20:57
DX: E11.65 Type 2 diabetes mellitus with hyperglycemia (principal); F17.200 Nicotine dependence, unspecified, uncomplicated; Z79.84 Long term (current) use of oral hypoglycemic drugs
CPT/HCPCS: 36415; 80053; 82803; 82009; 83605; 83735; 84100; 84484; 85025; 85610; 85730; 81003; 99285; 96374; 96361; J2405